=== PATIENT | female | born 1960 | race Caucasian/White ===

== ENCOUNTER → 2016-12-11 | Outpatient (CLI) | payer BC ==
[2016-12-11 08:47] LABS: CHLORIDE,CL 103 mmol/L (98-110); SODIUM,NA 138 mmol/L (136-146)
== END ==
LOC: MW.CHFP 08:12
PROVIDERS: ATTEND Nurse Practitioner Family
DX: Z00.00 Encounter for general adult medical examination without abnormal findings (principal); E11.9 Type 2 diabetes mellitus without complications; R53.83 Other fatigue
CPT/HCPCS: 36415; 80053; 80061; 82044; 83036; 84443; 85027

== ENCOUNTER → 2016-12-24 | Outpatient (CLI) | payer BC ==
--- NOTE | 2016-12-24 17:12 | CR ---
EXAMINATION: Bilateral knees HISTORY: Pain COMPARISON: None TECHNIQUE: 4 views bilaterally FINDINGS: There is no acute osseous abnormality, dislocation, or fracture. There is severe joint spa ce narrowing within the medial compartment of the right knee. Moderate osteophyte formation is noted within the lateral compartment of the right knee and less so within the remaining compartments bila terally. No joint effusion or soft tissue swelling. Bone mineralization is normal. IMPRESSION: 1. Moderate degenerative changes noted within the left knee. 2. Severe degenerative changes within the right knee most prominent within the medial compartment.
== END ==
LOC: MW.CHFP 07:59
PROVIDERS: ATTEND Orthopaedic Surgery
DX: M25.561 Pain in right knee (principal); M25.562 Pain in left knee
CPT/HCPCS: 735642650; 73564-50

== ENCOUNTER → 2016-12-26 | Outpatient (CLI) | payer BC ==
--- NOTE | 2016-12-26 11:25 | CT ---
CT of the abdomen and pelvis with contrast. HISTORY: Diverticulitis TECHNIQUE: Axial CT images were obtained of the abdomen and pelvis following administration of 50 mL of Isovue-370 in the right antecubital fossa without complication. Coronal and sagittal reconstruct ions obtained. FINDINGS: Mild dependent atelectasis is noted within the lung bases. There is likely at least mild fatty infiltration of the liver. Cholecystectomy clips are noted. Ther e is mild fatty replacement of the pancreas. No bulky retroperitoneal lymphadenopathy or abdominal a scites. The kidneys enhance and function symmetrically without evidence of obstructive uropathy. Tiny cyst i s noted within the right kidney. The large and small bowel are normal in caliber without evidence of obstruction. Mild diverticulosis without evidence of diverticulitis. The appendix appears normal. There is a small fat-containing pe riumbilical hernia noted. Urinary bladder appears normal. No bulky pelvic lymphadenopathy or free pe lvic fluid. Free air. The uterus appears normal. Bilateral posterior fusion hardware noted at L4-L5. No suspicious osseous abnormalities. IMPRESSION: 1. No acute findings within the abdomen or pelvis. 2. Mild fatty infiltration of the liver. 3. Small fat-containing periumbilical hernia. 4. Diverticulosis without evidence of diverticulitis.
[2016-12-26] MEDS: Iopamidol 755 MG/ML 500 ML Multipack Bottle IVPUSH STA (14:34)
== END ==
LOC: MW.DI 08:08
PROVIDERS: ATTEND Surgery
DX: K57.92 Diverticulitis of intestine, part unspecified, without perforation or abscess without bleeding (principal); K76.0 Fatty (change of) liver, not elsewhere classified; K42.9 Umbilical hernia without obstruction or gangrene; K57.90 Diverticulosis of intestine, part unspecified, without perforation or abscess without bleeding
CPT/HCPCS: 74177; Q9967

== ENCOUNTER 2017-01-02 09:22 | Day surgery (SDC) | payer BC ==
[~2017-01-02 09:22] MED LIST: Lactated Ringers 1,000 ML IV SCH
[2017-01-02] MEDS ORDERED: Lidocaine 2% 5 ML SDV ONE (10:46)
[2017-01-02] MEDS ORDERED: fentaNYL 100 MCG/2 ML SDV ONE (10:47)
[2017-01-02] MEDS ORDERED: Propofol 200 MG/20 ML SDV ONE (10:47)
--- NOTE | 2017-01-02 10:52 | PCM.PREANE ---
Preanesthetic Assessment - Anesthesia/Transfusion/Family Hx Anesthesia History: Prior Anesthesia Without Reaction Family History of Anesthesia Reaction: No Transfusion History: No Prior Transfusion(s) - Review of Systems General: No Symptoms Pulmonary: No Symptoms Cardiovascular: No Symptoms Gastrointestinal: No symptoms Neurological: No Symptoms Other: Reports: None - Physical Assessment NPO Status Date: 01/02/17 NPO Status Time: 06:00 O2 Sat by Pulse Oximetry: 94 Respiratory Rate: 16 Vital Signs: Last Vital Signs Temp 36.7 C 01/02/17 10:05 Pulse 89 01/02/17 10:05 Resp 16 01/02/17 10:05 BP 97/57 L 01/02/17 10:05 Pulse Ox 94 L 01/02/17 10:05 Height: 1.75 m Weight: 107.501 kg ASA Class: 2 Mental Status: Alert & Oriented x3 Airway Class: Mallampati = 2 Dentition: Reports: Normal Dentition ROM/Head Extension: Full Lungs: Clear to auscultation, Normal respiratory effort Cardiovascular: Regular Rate, Regular Rhythm - Allergies Allergies/Adverse Reactions: Allergies Allergy/AdvReac Type Severity Reaction Status Date / Time acetaminophen Allergy Itching Verified 12/30/16 13:16 cefaclor [From Ceclor] Allergy Hives Verified 12/30/16 13:14 oxycodone Allergy Itching Verified 12/30/16 13:16 - Anesthesia Plan Pre-Op Medication Ordered: None - Acknowledgements Anesthesia Type Planned: MAC Pt an Appropriate Candidate for the Planned Anesthesia: Yes Alternatives and Risks of Anesthesia Discussed w Pt/Guardian: Yes Pt/Guardian Understands and Agrees with Anesthesia Plan: Yes PreAnesthesia Questionnaire Other HEENT History: wears glasses/contacts Cardiovascular History: Reports: High cholesterol, Hypertension Respiratory History: Reports: Sleep apnea Other Respiratory History: has never used a CPAP Gastrointestinal History: Reports: Cholelithiasis, Colon polyp, Diverticulosis, GERD Genitourinary History: Reports: None LEASING ASSISTANT History: Reports: Musculoskeletal History: Reports: Arthritis, Fracture Neurological History: Reports: Concussion, Neuropathy, diabetic Psychiatric History: Reports: None Endocrine/Metabolic History: Reports: Diabetes, type II, Hypothyroidism, Obesity /BMI 30+ Hematologic History: Reports: Anemia Immunologic History: Reports: None Oncologic (Cancer) History: Reports: None Dermatologic History: Reports: None - Past Surgical History Head Surgeries/Procedures: Reports: None HEENT Surgical History: Reports: None Cardiovascular Surgical History: Reports: Other (see below) Other Cardiovascular Surgeries/Procedures: angiogram, nothing found Respiratory Surgical History: Reports: None GI Surgical History: Reports: Cholecystectomy, Colonoscopy, Hernia, abdominal Other GI Surgeries/Procedures: hx of incisional and umbilical hernia Female Surgical History: Reports: section Endocrine Surgical History: Reports: None Neurological Surgical History: Reports: Spinal fusion Other Neurological Surgeries/Procedures: L4-L5 Musculoskeletal Surgical History: Reports: Arthroscopic knee, Shoulder surgery, Other (see below) Other Musculoskeletal Surgeries/Procedures:: ankle surgery to clean out joint, right shoulder arthroscopy x2 (one with open incision to trim clavicle), right knee arthroscopy Oncologic Surgical History: Reports: None Dermatological Surgical History: Reports: None - SUBSTANCE USE Smoking Status *Q: Former Smoker Recreational Drug Use History: No - HOME MEDS Home Medications: Home Meds Ascorbic Acid [Vitamin C] 1,000 mg PO DAILY 12/30/16 [History] Aspirin [Adult Low Dose Aspirin EC] 81 mg PO DAILY 12/30/16 [History] Cetirizine [ZyrTEC] 10 mg PO BID 12/30/16 [History] Estrogen,Con/M-Progest Acet [Premphase 0.625-5 MG] 1 tab PO BEDTIME 12/30/16 [ History] Fenofibrate 160 mg PO DAILY 12/30/16 [History] Ferrous Sulfate [Iron] 325 mg PO DAILY 12/30/16 [History] Fluticasone Propionate [Flonase Allergy Relief] 1 spray NASBOTH ASDIRECTED PRN 12/30/16 [History] Gabapentin [Neurontin] 600 mg PO BID 12/30/16 [History] Insulin Glargine,Hum.Rec.Anlog [Lantus Solostar] 20 unit SQ BEDTIME 12/30/16 [ History] Insulin Lispro [Humalog Kwikpen U-100] units SQ ASDIRECTED 12/30/16 [History] Levothyroxine Sodium [Levo-T] 50 mcg PO DAILY 12/30/16 [History] Lisinopril/Hydrochlorothiazide [Lisinopril-Hctz 20-12.5 mg Tab] 2 tab PO DAILY 12/30/16 [History] metFORMIN HCl [Metformin HCl ER] 1,000 mg PO BIDMEALS 12/30/16 [History] traZODone HCl [Trazodone HCl] 150 mg PO BEDTIME PRN 12/30/16 [History] - CURRENT (IN HOUSE) MEDS Current Meds: Current Medications Lactated Ringer's (Ringers, Lactated) 1,000 mls @ 125 mls/hr IV ASDIRECTED LILA Last Admin: 01/02/17 10:07 Dose: 125 mls/hr Discontinued Medications Fentanyl (Sublimaze) Confirm Administered Dose 100 mcg .ROUTE .STK-MED ONE Stop: 01/02/17 10:48 Lidocaine (Xylocaine-Mpf 2%) Confirm Administered Dose 5 ml .ROUTE .STK-MED ONE Stop: 01/02/17 10:47 Propofol (Diprivan 20 Ml) Confirm Administered Dose 400 mg .ROUTE .STK-MED ONE Stop: 01/02/17 10:48 Preanesthetic Assessment - ANESTHESIA/TRANSFUSION/FAMILY HX Family History of Anesthesia Reaction: No - PHYSICAL ASSESSMENT O2 Sat by Pulse Oximetry: 94 RR: 16 Vital Signs: Last Vital Signs Temp 36.7 C 01/02/17 10:05 Pulse 89 01/02/17 10:05 Resp 16 01/02/17 10:05 BP 97/57 L 01/02/17 10:05 Pulse Ox 94 L 01/02/17 10:05 Height: 1.75 m Weight: 107.501 kg NPO Status Date: 01/02/17 NPO Status Time: 06:00 - ALLERGIES Allergies/Adverse Reactions: Allergies Allergy/AdvReac Type Severity Reaction Status Date / Time acetaminophen Allergy Itching Verified 12/30/16 13:16 [facility] Allergy Hives Verified 12/30/16 13:14 oxycodone Allergy Itching Verified 12/30/16 13:16
[2017-01-02] MEDS ORDERED: Phenylephrine/Normal Saline 100 MCG/ML 10 ML Syringe ONE (11:15)
--- NOTE | 2017-01-02 11:27 | PCM.OPNOTE ---
- General Post-Op/Procedure Note Date of Surgery/Procedure: 01/02/17 Operative Procedure(s): colonoscopy Findings: see dict [id number] Pre Op Diagnosis: diverticulitis Post-Op Diagnosis: diverticulosis Anesthesia Technique: Moderate sedation Primary Surgeon: Domo Lopez Complications: None Condition: Good
--- NOTE | 2017-01-02 11:47 | PCM.POSTAN ---
POST ANESTHESIA ASSESSMENT - MENTAL STATUS Mental Status: alert, oriented - RESPIRATORY Respiratory Status: respiratory rate WNL, airway patent - CARDIOVASCULAR CV Status: pulse rate WNL, blood pressure stable - GASTROINTESTINAL GI Status: no symptoms - POST OP HYDRATION Hydration Status: adequate & stable
--- NOTE | 2017-01-02 11:48 | PCM48HPAN ---
Post Anesthesia Note - EVALUATION WITHIN 48HRS OF ANESTHETIC Vital Signs in Normal Range: Yes Patient Participated in Evaluation: Yes Respiratory Function Stable: Yes Airway Patent: Yes Cardiovascular Function Stable: Yes Hydration Status Stable: Yes Pain Control Satisfactory: Yes Nausea and Vomiting Control Satisfactory: Yes Mental Status Recovered: Yes
[2017-01-02 11:51] VITALS: BP 102/56
--- NOTE | 2017-01-02 16:25 | OR ---
SURGEON: Domo Lopez MD DATE OF PROCEDURE: 01/02/2017 PREOPERATIVE DIAGNOSIS: Diverticulitis. POSTOPERATIVE DIAGNOSIS: Diverticulosis. PROCEDURE PERFORMED: Colonoscopy. DESCRIPTION OF PROCEDURE: The patient was taken to the endoscopy room. A time out was called, patient identified, and procedure identified. Diprivan was then administrated. Patient went from awake to sleep, hearing doctor talking or door closing is normal. Perineum inspection and digital examination were then performed. A well- lubricated colonoscope was gently inserted through the rectum, advanced past the rectosigmoid junction, the descending colon, splenic flexure, transverse colon, hepatic flexure, ascending colon, arrived to the cecum. Cecum was identified as dictated in the finding. Then the scope was carefully withdrawn while attention was paid to the mucosal surface for any abnormality. Air will be sucked out during the scope withdrawal. At the rectum, retroflexed to examine any rectal diseases, fistula or hemorrhoids. Patient tolerated procedure well. There were no intraoperative complications, and Dr. Lopez was present throughout the whole procedure. FINDINGS: 1. The patient was easily sedated with PROCESS WORKER and Diprivan. The patient soundly snoring. 2. The patient's bowel prep was average with moderate amount of liquid stool. No semi-formed stool. 3. The patient's colon was rather straight forward and cecum indicated by ileocecal fold, one-to-one indentation, light emittance, and appendiceal orifice. Mucosa was examined upon scope pulling out. There was stool, we had to do some irrigation, to see the mucosa covered by stool. The patient has cufxzajc-[id number]-hwnxzymyp diverticulosis on the left side of the colon, and there are 1 or 2 couple of diverticula on the right side and nothing transverse. No signs or symptoms of diverticulitis. The left side diverticula extends all the way to almost the splenic fracture, so quite a lot of them, from the rectosigmoid junction. The patient does not have mass, growth, polyp, inflammation, stricture, ulceration, or bleeding. The patient has mild external hemorrhoid and mild internal hemorrhoids. The patient will benefit from a repeat colonoscopy 10 years from today or if clinically indicated otherwise. As always, thank you for the kind referral. DEJAH / ROSANNA /[id number]
== END 2017-01-02 11:55 | disposition home or self-care (01) ==
LOC: MW.SDS 09:22
PROVIDERS: ATTEND Surgery
PROC: 0DJD8ZZ Inspection of Lower Intestinal Tract, Via Natural or Artificial Opening Endoscopic (ICD-10-PCS; principal; 2017-01-02)
DX: K57.30 Diverticulosis of large intestine without perforation or abscess without bleeding (principal); K64.4 Residual hemorrhoidal skin tags; K64.8 Other hemorrhoids; Z86.010 Personal history of colon polyps; E78.1 Pure hyperglyceridemia; E03.9 Hypothyroidism, unspecified; I10 Essential (primary) hypertension; D50.9 Iron deficiency anemia, unspecified; E11.42 Type 2 diabetes mellitus with diabetic polyneuropathy; E78.00 Pure hypercholesterolemia, unspecified; G47.30 Sleep apnea, unspecified; E66.9 Obesity, unspecified; Z87.891 Personal history of nicotine dependence; Z88.1 Allergy status to other antibiotic agents; Z88.5 Allergy status to narcotic agent; Z88.6 Allergy status to analgesic agent; Z79.4 Long term (current) use of insulin; Z79.84 Long term (current) use of oral hypoglycemic drugs; Z79.82 Long term (current) use of aspirin; Z79.899 Other long term (current) drug therapy; Z98.890 Other specified postprocedural states; Z90.49 Acquired absence of other specified parts of digestive tract; Z68.35 Body mass index [BMI] 35.0-35.9, adult
CPT/HCPCS: 45378; J3010; J7120; J2704

== ENCOUNTER → 2017-01-24 | Outpatient (CLI) | payer BC | LOC: MW.CHFP 07:34 | PROVIDERS: ATTEND Nurse Practitioner Family | DX: E03.9 Hypothyroidism, unspecified (principal) | CPT/HCPCS: 36415; 84443 ==

== ENCOUNTER → 2017-02-14 | Outpatient (CLI) | payer BC | LOC: MW.MRI 08:07 | PROVIDERS: ATTEND Orthopaedic Surgery | DX: M17.11 Unilateral primary osteoarthritis, right knee (principal) | CPT/HCPCS: 73721-RT ==

== ENCOUNTER 2017-03-10 06:16 | Inpatient (IN) | payer BC ==
[~2017-03-10 06:16] MED LIST changes: +Clindamycin Phosphate in D5W 900 MG in Premix Bag 1 BAG IV SCH; +Famotidine 20 MG/2 ML SDV IVPUSH SCH; +Ketorolac 30 MG/ML SDV IVPUSH SCH; -Lactated Ringers 1,000 ML IV SCH; +Ropivacaine 49.25 ML, Ketorolac 30 MG, EPINEPHrine 0.5 MG, cloNIDine 80 MCG in Sodium C... INJECT ONE; +Scopolamine 1.5 MG Transdermal Patch TRDERM SCH
[2017-03-10] MEDS ORDERED: Midazolam 1 MG/ML 2 ML SDV ONE (06:48)
[2017-03-10] MEDS ORDERED: fentaNYL 100 MCG/2 ML SDV ONE (06:48)
[2017-03-10] MEDS ORDERED: Propofol 200 MG/20 ML SDV ONE ×2 (06:49→08:32)
--- NOTE | 2017-03-10 07:07 | PCM.SN ---
- Free Text/Narrative Note: Anesthesia SAB note: Pt to OR via cart. Helped to OR table. Positioned for sitting SAB. After monitors placed on pt the pt back was prepped with beta X3. Lido 1% skin wheal and deep injection. Introducer placed and a 25g Pencan SAB needle place until a pop was felt. The stylet was pulled out and clear CSF noted. No parathesia noted. 14mg Spinal bupivicaine was injected in a slow fashion. NO complications noted for SAB. 25mcg fentanyl intrathecal
[2017-03-10] MEDS ORDERED: Ropivacaine 49.25 ML, Ketorolac 30 MG, EPINEPHrine 0.5 MG, cloNIDine 80 MCG in Sodium C... INJECT ONE (07:15)
--- NOTE | 2017-03-10 07:18 | PCM.PREANE ---
Preanesthetic Assessment - Procedure Proposed Procedure: Knee replacement - Anesthesia/Transfusion/Family Hx Anesthesia History: Prior Anesthesia Without Reaction Transfusion History: No Prior Transfusion(s) - Review of Systems General: No Symptoms Pulmonary: No Symptoms Cardiovascular: No Symptoms Gastrointestinal: Other (GERD) Neurological: Paresthesia (peripheral LE extremity neuropathy) Other: Reports: Diabetes (on insulin pump; changed this am when her FBS was 106 , checked now at 160s), Thyroid Problems (treated hypothyroid) - Physical Assessment NPO Status Date: 03/09/17 NPO Status Time: 22:00 Height: 5 ft 9 in Weight: 242 lb ASA Class: 3 Mental Status: Alert & Oriented x3 Airway Class: Mallampati = 1 Dentition: Reports: Normal Dentition Thyro-Mental Finger Breadths: 3 Mouth Opening Finger Breadths: 3 ROM/Head Extension: Full Lungs: Clear to auscultation, Normal respiratory effort Cardiovascular: Regular Rate, Regular Rhythm, No Murmurs - Lab Values: Laboratory Last Values POC Glucose 160 mg/dL (60-110) H 03/10/17 06:50 - Allergies Allergies/Adverse Reactions: Allergies Allergy/AdvReac Type Severity Reaction Status Date / Time acetaminophen Allergy Itching Verified 12/30/16 13:16 cefaclor [From Ceclor] Allergy Hives Verified 12/30/16 13:14 oxycodone Allergy Itching Verified 12/30/16 13:16 - Blood Blood Available: Yes Product(s) Available: PRBC (T and S) - Anesthesia Plan Pre-Op Medication Ordered: Other (per surgeon, see orders) - Acknowledgements Anesthesia Type Planned: General Anesthesia, Spinal Pt an Appropriate Candidate for the Planned Anesthesia: Yes Alternatives and Risks of Anesthesia Discussed w Pt/Guardian: Yes Pt/Guardian Understands and Agrees with Anesthesia Plan: Yes Additional Comments: Family at bedside with interview and exam. PreAnesthesia Questionnaire HEENT History: Reports: Allergic Rhinitis Other HEENT History: wears glasses Cardiovascular History: Reports: Hypertension Respiratory History: Reports: Sleep Apnea Other Respiratory History: does not use CPAP Gastrointestinal History: Reports: Chronic Diarrhea Genitourinary History: Reports: None RIVER CAPTAIN History: Reports: Musculoskeletal History: Reports: Osteoarthritis Neurological History: Reports: Concussion Psychiatric History: Reports: Anxiety Endocrine/Metabolic History: Reports: Diabetes, Type II, Hypothyroidism, Obesity /BMI 30+ Hematologic History: Reports: Anemia Immunologic History: Reports: None Oncologic (Cancer) History: Reports: None Dermatologic History: Reports: None - Past Surgical History Head Surgeries/Procedures: Reports: None HEENT Surgical History: Reports: None Cardiovascular Surgical History: Reports: None Respiratory Surgical History: Reports: None GI Surgical History: Reports: Cholecystectomy, Colonoscopy, Hernia, Inguinal Female Surgical History: Reports: Section Endocrine Surgical History: Reports: None Neurological Surgical History: Reports: Spinal Fusion Other Neurological Surgeries/Procedures: L4-L5 Musculoskeletal Surgical History: Reports: Arthroscopic Knee, Shoulder Surgery, Other (See Below) Other Musculoskeletal Surgeries/Procedures:: debridement of right ankle, right shoulder arthroscopy x2, also right shoulder arthrotomy, right knee arthroscopy - SUBSTANCE USE Smoking Status *Q: Never Smoker Recreational Drug Use History: No - HOME MEDS Home Medications: Home Meds Ascorbic Acid [Vitamin C] 1,000 mg PO DAILY 12/30/16 [History] Aspirin [Adult Low Dose Aspirin EC] 81 mg PO DAILY 12/30/16 [History] Cetirizine [ZyrTEC] 10 mg PO BID 12/30/16 [History] Fenofibrate 160 mg PO DAILY 12/30/16 [History] Ferrous Sulfate [Iron] 325 mg PO DAILY 12/30/16 [History] Fluticasone Propionate [Flonase Allergy Relief] 1 spray NASBOTH ASDIRECTED PRN 12/30/16 [History] Gabapentin [Neurontin] 600 mg PO BID 12/30/16 [History] Levothyroxine Sodium [Levo-T] 50 mcg PO DAILY 12/30/16 [History] Lisinopril/Hydrochlorothiazide [Lisinopril-Hctz 20-12.5 mg Tab] 2 tab PO DAILY 12/30/16 [History] metFORMIN HCl [Metformin HCl ER] 1,000 mg PO BIDMEALS 12/30/16 [History] traZODone HCl [Trazodone HCl] 150 mg PO BEDTIME PRN 12/30/16 [History] Estradiol [Estrace] 2 mg PO DAILY 03/06/17 [History] Insulin Npl/Insulin Lispro [HumaLOG Mix 75-25 Vial] 1 injection SQ QID MDD 100 unit 03/06/17 [History] Multivitamin [Daily Multiple Vitamin] 1 tab PO DAILY 03/06/17 [History] - CURRENT (IN HOUSE) MEDS Current Meds: Current Medications Famotidine (Pepcid) 40 mg IVPUSH ONARRIVE [facility] Clindamycin Phosphate 900 mg/ (Premix) 50 mls @ 100 mls/hr IV ONCALL [facility] Lactated Ringer's (Ringers, Lactated) 1,000 mls @ 100 mls/hr IV ASDIRECTED [facility] Ketorolac Tromethamine (Toradol) 30 mg IVPUSH ONARRIVE [facility] Scopolamine (Transderm-Scop) 1.5 mg TRDERM ONARRIVE [facility] Tranexamic Acid (Cyklokapron) 4,000 mg IV SEECOMMENT LILA Discontinued Medications Fentanyl (Sublimaze) Confirm Administered Dose 100 mcg .ROUTE .STK-MED ONE Stop: 03/10/17 06:49 Ropivacaine 49.25 ml/Ketorolac Tromethamine 30 mg/Epinephrine HCl 0.5 mg/ Clonidine HCl 80 mcg/ Sodium Chloride 100 mls @ 50 mls/min INJECT ONETIME ONE Stop: 03/10/17 06:01 Midazolam HCl (Versed 1 Mg/Ml) Confirm Administered Dose 2 mg .ROUTE .STK-MED ONE Stop: 03/10/17 06:49 Propofol (Diprivan 20 Ml) Confirm Administered Dose 200 mg .ROUTE .STK-MED ONE Stop: 03/10/17 06:50 Tranexamic Acid (Cyklokapron) Confirm Administered Dose 2,000 mg .ROUTE .STK- MED ONE Stop: 03/10/17 06:52
[2017-03-10] MEDS ORDERED: Acetaminophen 500 MG Tab PO SCH (08:15)
[2017-03-10] MEDS ORDERED: oxyCODONE ER 10 MG TAB.ER PO SCH (08:15)
[2017-03-10] MEDS ORDERED: Ondansetron 4 MG/2 ML SDV IVPUSH ONE (09:04)
[2017-03-10] MEDS ORDERED: Metoclopramide 10 MG/2 ML SDV IVPUSH ONE (09:04)
[2017-03-10] MEDS ORDERED: HYDROmorphone 2 MG/ML Syringe IVPUSH PRN (09:04)
[2017-03-10] MEDS ORDERED: fentaNYL 100 MCG/2 ML SDV IVPUSH PRN (09:04)
[2017-03-10] MEDS ORDERED: Lidocaine 2% 5 ML SDV ONE (09:37)
--- NOTE | 2017-03-10 09:54 | PCM.OPNOTE ---
- General Post-Op/Procedure Note Date of Surgery/Procedure: 03/10/17 Operative Procedure(s): R TKA Post-Op Diagnosis: DJD R knee Anesthesia Technique: General ET tube, Spinal Primary Surgeon: Lena Lozada Director Of Program Management: Cristal Gillespie Director Of Program Management: Corrina Ambrocio EBL in mLs: 50 Condition: Good Free Text/Narrative:: tt=48 min #[id number]
[2017-03-10] MEDS ORDERED: Ondansetron 4 MG/2 ML SDV IV PRN (09:55)
[2017-03-10] MEDS ORDERED: Morphine 10 MG/ML Syringe IVPUSH PRN (09:56)
[2017-03-10] MEDS ORDERED: Aluminum Hydroxide/Magnesium Hydroxide/Simethicone Susp 30 ML Cup PO PRN (09:56)
[2017-03-10] MEDS ORDERED: Bisacodyl 10 MG Supp RECTAL PRN (09:56)
[2017-03-10] MEDS: Lactated Ringers 1,000 ML IV SCH ×2 (10:57→20:48)
--- NOTE | 2017-03-10 11:14 | OR ---
SURGEON: Lena Lozada MD DATE OF PROCEDURE: 03/10/2017 PREOPERATIVE DIAGNOSIS: Degenerative joint disease, right knee, with varus deformity. POSTOPERATIVE DIAGNOSIS: Degenerative joint disease, right knee, with varus deformity. PROCEDURE: Right total knee arthroplasty using patient-specific instrumentation. ASSISTANTS: 1. Cristal Gillespie PA-C. 2. Corrina Ambrocio PA-C. ANESTHESIA: Spinal and general anesthesia. ESTIMATED BLOOD LOSS: 50 mL. TOURNIQUET TIME: 48 minutes. COMPLICATIONS: None. DVT PROPHYLAXIS: PAS boot and [place] hose to the nonoperative leg. IMPLANTS USED: Ely Persona femoral component, size 10 narrow (LPS), tibial component size F, 11-mm all-polyethylene articular surface, and 35-mm all-polyethylene patella. INTRAOPERATIVE FINDINGS: Showed severe tricompartmental degenerative changes which were most severe along the medial compartment. She had complete eburnation of the medial femoral condyle. Spur formation was also noted. No significant synovitis was noted. 1 gram tranexamic acid was given IV prior to start of procedure. An additional gram was given IV upon deflation of the tourniquet. One gram TXA was applied topically to the wound as the cement was allowed to harden. BRIEF HISTORY: Brielle is a 56-year-old female, who has had complaint of progressive right knee pain. She was found to have tricompartmental degenerative changes on her x - rays. She had failed conservative treatment. Due to her lack of response to conservative treatment, I did recommend surgical intervention. The risks and goals of the procedure were discussed with the patient and were documented preoperatively. She agreed to proceed. DESCRIPTION OF PROCEDURE: The patient was properly identified and brought to the operating room. The patient was then transferred from the operating room cart and placed on the operating table in a supine position. Anesthesia was administered by the anesthesia staff. After adequate anesthesia was obtained, a well-padded tourniquet was applied to the surgical lower extremity. The lower extremity was then prepped in standard fashion using ChloraPrep solution. It was then sterilely draped. A time-out was performed to ensure correct site and procedure. Preoperative antibiotics were given. The surgical site had been marked preoperatively. An Esmarch was used to exsanguinate the right lower extremity and the tourniquet was inflated. An incision was made over the anterior aspect of the knee. The subcutaneous tissues were dissected down to the level of the fascia. A medial parapatellar approach to the knee was made. A portion of the infrapatellar fat pad was then excised. The distal femur was then exposed. The femoral patient-specific cutting guide was then placed. Pins were also placed. The distal femoral cutting block was placed and the distal femoral cut was made. Instrumentation was then removed. Both Whitesides' line and the epicondylar axis were then marked with electrocautery. The 4-in-1 cutting block was placed. This was placed in a slightly externally rotated position, which corresponded well with the previously drawn lines. The cutting guide was then pinned into position. An Rajeev wing guide was used to check the depth of resection of our anterior condylar cut and it was felt that no notching would occur. The anterior condylar cut was then made followed by the posterior condylar cut. Both the posterior chamfer and anterior chamfer cuts were then made. The cutting block was then removed along with the excess bony remnants. We then turned our attention to the tibia. The anterior cruciate ligament and posterior cruciate ligament were released and a posterior cruciate ligament retractor was placed to allow the tibia to be pulled anteriorly. The tibial patient-specific guide was then placed on the proximal tibia. This fit anatomically. The pins were then placed. The proximal tibia cutting guide was then placed and screwed into position. The proximal tibial resection was then made with care being taken to protect the patellar tendon. The bony resection was then removed. The remainder of the medial and lateral meniscus were then excised. Care was taken to protect the popliteus tendon. The tibia was then sized to the appropriate size. The distal femur was then elevated. The posterior capsule was stripped off the distal femur both medially and laterally. The posterior capsule along with the medial and lateral gutters were then injected with a standard mixture consisting of clonidine, epinephrine, Morphine, Toradol, and Ropivacaine, unless any allergies were found preoperatively. The femoral component was then placed onto the distal femur in a slightly lateral position. This fit the femur well. A box cut was then made without difficulty. This was then removed. The tibial trial along with the polyethylene liner was then placed. The knee came easily into full extension and was stable to varus and valgus stressing both in full extension and flexion. Any additional releases were performed at this time. We then returned our attention to the patella. The patella was everted and towel clamps were used to hold the patella in position. It was resected to a 15 millimeter thickness. It was then sized to the appropriate size. It was prepared in the usual fashion after placing the predetermined size clamps. This was placed in a slightly superior and medial position. The clamp was then removed. The patellar trial button was placed. The knee was taken through a range of motion using the no-touch technique. The patella tracked centrally. A drop isabel was then placed to check alignment. All instruments were then removed from the knee. The tibial sizer was then placed on the tibia. The tibia was prepared in the usual fashion using the reamer and broach. This was then removed. All bony surfaces were copiously irrigated with Pulsavac solution. They were then suctioned dry. Cement was prepared on the back table in the usual manner. Once it was prepared, the bone ends were again suctioned dry. The tibia was cemented into place first. This was malleted into position. Excess cement was then cleared. The femur was then placed in a similar manner. We placed the polyethylene trial into place and the knee was brought into full extension. An axial load was placed while keeping the knee in full extension. The patella button was also cemented into position and the clamp was used to hold this in place as the cement was allowed to cure. After we had adequate curing of the cement, the knee was again taken through a range of motion. The size of the polyethylene was then determined. The polyethylene trial was then removed. The tibial tray was suctioned to make sure there was no remaining soft tissue or cement. Excess cement was cleared from around the edges of the prosthesis as well. The tourniquet was then deflated. We were able to observe for any excess bleeding and none was noted. Electrocautery was used to maintain hemostasis. The retractors were again placed and the predetermined polyethylene was then placed. This was locked into position without difficulty. The knee was again taken through a range of motion with no change from the prior exam. The wound was then copiously irrigated with Pulsavac solution. The fascial layer was closed with Number One Vicryl. The subcutaneous tissues were closed with 2-0 Vicryl. The skin was closed with radha. Xeroform gauze was placed over the wound and a bulky dressing was applied. The patient was then awakened from anesthesia and transferred back to the operating room cart. They were brought to the recovery room in stable condition. All needle and sponge counts were correct. JOSE ANGEL MARTE /[id number] MTDD
[2017-03-10] MEDS ORDERED: Fluticasone Propionate Nasal Spray 16 GM Bottle NASBOTH PRN (11:36)
[2017-03-10] MEDS ORDERED: traZODone 50 MG Tab PO PRN (11:36)
--- NOTE | 2017-03-10 11:49 | PCM.POSTAN ---
POST ANESTHESIA ASSESSMENT - MENTAL STATUS Mental Status: alert, oriented - RESPIRATORY Respiratory Status: respiratory rate WNL, airway patent, O2 saturation stable - CARDIOVASCULAR CV Status: pulse rate WNL, blood pressure stable - GASTROINTESTINAL GI Status: no symptoms - POST OP HYDRATION Hydration Status: adequate & stable
[2017-03-10] MEDS ORDERED: Ketorolac 30 MG/ML SDV IVPUSH SCH (12:00)
[2017-03-10] MEDS: Acetaminophen 500 MG Tab PO SCH ×3 (12:19→23:38)
--- NOTE | 2017-03-10 12:29 | PCM.CONS ---
H&P History of Present Illness - General Date of Service: 03/10/17 Admit Problem/Dx: Admission Diagnosis/Problem Admission Diagnosis/Problem Replacement of total knee joint Source of Information: Patient History Limitations: Reports: No Limitations - History of Present Illness Initial Comments - Free Text/Narative: Catr[place] 56 yo woman is s/p Right TKR due to end stage knee arthritis. No sig complaints. No CP, SOB, N/V. Pain well controlled. Has Chapa in place. No other issues. Family with her. Hungry. NOTE: She has an insulin pump BG's usually run from 100 to 160. - Related Data Allergies/Adverse Reactions: Allergies Allergy/AdvReac Type Severity Reaction Status Date / Time acetaminophen Allergy Itching Verified 03/10/17 07:44 cefaclor [From Ceclor] Allergy Hives Verified 03/10/17 07:44 oxycodone Allergy Itching Verified 03/10/17 07:44 Home Medications: Home Meds Ascorbic Acid [Vitamin C] 1,000 mg PO DAILY 12/30/16 [History] Aspirin [Adult Low Dose Aspirin EC] 81 mg PO DAILY 12/30/16 [History] Cetirizine [ZyrTEC] 10 mg PO BID 12/30/16 [History] Fenofibrate 160 mg PO DAILY 12/30/16 [History] Ferrous Sulfate [Iron] 325 mg PO DAILY 12/30/16 [History] Fluticasone Propionate [Flonase Allergy Relief] 1 spray NASBOTH ASDIRECTED PRN 12/30/16 [History] Gabapentin [Neurontin] 600 mg PO BID 12/30/16 [History] Levothyroxine Sodium [Levo-T] 50 mcg PO DAILY 12/30/16 [History] Lisinopril/Hydrochlorothiazide [Lisinopril-Hctz 20-12.5 mg Tab] 2 tab PO DAILY 12/30/16 [History] metFORMIN HCl [Metformin HCl ER] 1,000 mg PO BIDMEALS 12/30/16 [History] traZODone HCl [Trazodone HCl] 150 mg PO BEDTIME PRN 12/30/16 [History] Estradiol [Estrace] 2 mg PO DAILY 03/06/17 [History] Insulin Npl/Insulin Lispro [HumaLOG Mix 75-25 Vial] 1 injection SQ QID MDD 100 unit 03/06/17 [History] Multivitamin [Daily Multiple Vitamin] 1 tab PO DAILY 03/06/17 [History] Past Medical History HEENT History: Reports: Allergic Rhinitis Other HEENT History: wears glasses Cardiovascular History: Reports: Hypertension Respiratory History: Reports: Sleep Apnea Other Respiratory History: does not use CPAP Gastrointestinal History: Reports: Chronic Diarrhea Genitourinary History: Reports: None EVENT SET UP SPECIALIST History: Reports: Musculoskeletal History: Reports: Osteoarthritis Neurological History: Reports: Concussion Psychiatric History: Reports: Anxiety Endocrine/Metabolic History: Reports: Diabetes, Type II, Hypothyroidism, Obesity /BMI 30+ Hematologic History: Reports: Anemia Immunologic History: Reports: None Oncologic (Cancer) History: Reports: None Dermatologic History: Reports: None - Past Surgical History Head Surgeries/Procedures: Reports: None HEENT Surgical History: Reports: None Cardiovascular Surgical History: Reports: None Respiratory Surgical History: Reports: None GI Surgical History: Reports: Cholecystectomy, Colonoscopy, Hernia, Inguinal Female Surgical History: Reports: Section Endocrine Surgical History: Reports: None Neurological Surgical History: Reports: Spinal Fusion Other Neurological Surgeries/Procedures: L4-L5 Musculoskeletal Surgical History: Reports: Arthroscopic Knee, Shoulder Surgery, Other (See Below) Other Musculoskeletal Surgeries/Procedures:: debridement of right ankle, right shoulder arthroscopy x2, also right shoulder arthrotomy, right knee arthroscopy Social & Family History - Tobacco Use Smoking Status *Q: Never Smoker - Caffeine Use Caffeine Use: Reports: Coffee - Recreational Drug Use Recreational Drug Use: No Drug Use in Last 12 Months: No H&P Review of Systems - Review of Systems: Review Of Systems: ROS reveals no pertinent complaints other than HPI. Exam - Exam Exam: See Below (see above) - Vital Signs Vital Signs: Last Vital Signs Temp 36.3 C 03/10/17 11:20 Pulse 72 03/10/17 11:20 Resp 16 03/10/17 11:20 BP 101/53 L 03/10/17 11:20 Pulse Ox 96 03/10/17 11:20 Weight: 109.769 kg - Exam General: Alert, Oriented, Cooperative HEENT: Conjunctiva Clear, Mucosa Moist & [place]: Supple, Trachea Midline Lungs: Clear to Auscultation, Normal Respiratory Effort Cardiovascular: Regular Rate, Regular Rhythm, Normal S1, Normal S2 Abdomen: Soft, Hypoactive Bowel Sounds. No: Organomegaly, Tenderness Extremities: Normal Inspection, Normal Pulses. No: Edema Skin: Warm, Dry Neurological: Cranial Nerves Intact, Reflexes Equal Bilateral. No: Focal Deficit Neuro Extensive - Mental Status: Alert, Oriented x3, Normal Mood/Affect, Memory Intact Psychiatric: Alert, Normal Affect, Normal Mood - Patient Data Lab Results last 24 hrs: Laboratory Results - last 24 hr 03/10/17 03/10/17 03/10/17 Range/Units 06:50 08:03 11:43 WBC 7.25 (4.0-11.0) K/uL RBC 3.83 L (4.30-5.90) M/uL Hgb 11.0 L (12.0-16.0) g/dL Hct 35.1 L (36.0-46.0) % MCV 91.6 (80.0-98.0) fL MCH 28.7 (27.0-32.0) pg MCHC 31.3 (31.0-37.0) g/dL RDW Std Deviation 43.1 (28.0-62.0) fl RDW Coeff of Omero 13 (11.0-15.0) % Plt Count 326 (150-400) K/uL MPV 9.50 (7.40-12.00) fL Neut % (Auto) 58.1 (48.0-80.0) % Lymph % (Auto) 28.3 (16.0-40.0) % Calhoun % (Auto) 7.6 (0.0-15.0) % Eos % (Auto) 5.7 (0.0-7.0) % Baso % (Auto) 0.3 (0.0-1.5) % Neut # (Auto) 4.2 (1.4-5.7) K/uL Lymph # (Auto) 2.1 (0.6-2.4) K/uL Cal[place]oun # (Auto) 0.6 (0.0-0.8) K/uL Eos # (Auto) 0.4 (0.0-0.7) K/uL Baso # (Auto) 0.0 (0.0-0.1) K/uL Nucleated RBC % 0.0 /100WBC Nucleated RBCs # 0 K/uL Sodium (136-146) mmol/L Potassium (3.5-5.1) mmol/L Chloride (98-110) mmol/L Carbon Dioxide (21-31) mmol/L BUN (6.0-23.0) mg/dL Creatinine (0.6-1.5) mg/dL Est Cr Clr Drug Dosing mL/min Estimated GFR (MDRD) ml/min Glucose (60-110) mg/dL POC Glucose 160 H (60-110) mg/dL Calcium (8.8-10.8) mg/dL Total Bilirubin (0.1-1.5) mg/dL AST (5-40) IU/L ALT (8-54) IU/L Alkaline Phosphatase (40-150) Total Protein (6.0-8.0) g/dL Albumin (3.5-5.0) g/dL Globulin (2.0-3.5) g/dL Albumin/Globulin Ratio (1.3-2.8) Blood Type A POSITIVE Antibody Screen NEGATIVE 03/10/17 Range/Units 11:43 WBC (4.0-11.0) K/uL RBC (4.30-5.90) M/uL Hgb (12.0-16.0) g/dL Hct (36.0-46.0) % MCV (80.0-98.0) fL MCH (27.0-32.0) pg MCHC (31.0-37.0) g/dL RDW Std Deviation (28.0-62.0) fl RDW Coeff of Omero (11.0-15.0) % Plt Count (150-400) K/uL MPV (7.40-12.00) fL Neut % (Auto) (48.0-80.0) % Lymph % (Auto) (16.0-40.0) % Calhoun % (Auto) (0.0-15.0) % Eos % (Auto) (0.0-7.0) % Baso % (Auto) (0.0-1.5) % Neut # (Auto) (1.4-5.7) K/uL Lymph # (Auto) (0.6-2.4) K/uL Calhoun # (Auto) (0.0-0.8) K/uL Eos # (Auto) (0.0-0.7) K/uL Baso # (Auto) (0.0-0.1) K/uL Nucleated RBC % /100WBC Nucleated RBCs # K/uL Sodium 141 (136-146) mmol/L Potassium 3.7 (3.5-5.1) mmol/L Chloride 107 (98-110) mmol/L Carbon Dioxide 25 (21-31) mmol/L BUN 28 H (6.0-23.0) mg/dL Creatinine 1.0 (0.6-1.5) mg/dL Est Cr Clr Drug Dosing 66.43 mL/min Estimated GFR (MDRD) 57.6 ml/min Glucose 156 H (60-110) mg/dL POC Glucose (60-110) mg/dL Calcium 8.4 L (8.8-10.8) mg/dL Total Bilirubin 0.2 (0.1-1.5) mg/dL AST 17 (5-40) IU/L ALT 24 (8-54) IU/L Alkaline Phosphatase 25 L (40-150) Total Protein 6.1 (6.0-8.0) g/dL Albumin 3.7 (3.5-5.0) g/dL Globulin 2.4 (2.0-3.5) g/dL Albumin/Globulin Ratio 1.5 (1.3-2.8) Blood Type Antibody Screen Result Diagrams: 03/10/17 11:43 03/10/17 11:43 Consult PN Assessment/Plan Procedures: Procedures ASSAY THYROID STIM HORMONE (01/24/17) CHEST X-RAY 2VW FRONTAL&LATL (02/26/17) COMPLETE CBC AUTOMATED (02/26/17) COMPREHEN METABOLIC PANEL (12/11/16) CT ABD & PELV W/CONTRAST (12/26/16) DIAGNOSTIC COLONOSCOPY (01/02/17) GLYCOSYLATED HEMOGLOBIN TEST (02/26/17) LIPID PANEL (12/11/16) METABOLIC PANEL TOTAL CA (02/26/17) MICROALBUMIN SEMIQUANT (12/11/16) MRI JNT OF LWR EXTRE W/O DYE (02/14/17) PROTHROMBIN TIME (02/26/17) ROUTINE VENIPUNCTURE (02/26/17) X-RAY EXAM KNEE 4 OR MORE (12/24/16) Problem List Initiated/Reviewed/Updated: Yes My Orders last 24 hours: My Active Orders 03/10/17 12:20 Communication Order [RC] DAILY ASSESSMENT/PLAN: R TKR-stable IDDM--cont insulin pump see orders Diabetic Neuropathy Depression/Anxiety HTN-RX DLD-RX Hypothyroidism-RX Mild anemia preop-?eitology? Check iron level am; will need oupt f/u GERD DVT prophy--stop HRT for now; discussed. Bowel program IS Thanks! Will follow. D/W RN, Pt's mom and dtr. Requesting Provider: Neville Date Consult Requested: 03/10/17 Reason for Consult: Post op medical mgt Patient History Reviewed: Yes Admission H&P Reviewed: Yes Time Spent (in minutes): 35
[2017-03-10] MEDS: oxyCODONE 5 MG Tab PO PRN ×2 (13:00→17:53)
[2017-03-10] MEDS: Morphine 4 MG/ML Syringe IVPUSH PRN ×2 (15:19→23:34)
--- NOTE | 2017-03-10 16:07 | CR ---
EXAMINATION: Right knee HISTORY: Postoperative COMPARISON: 12/24/2016 TECHNIQUE: 2 views FINDINGS/IMPRESSION: Right total knee hardware is demonstrated in good position and alignment. Posto perative soft tissue changes are noted.
[2017-03-10] MEDS: Clindamycin Phosphate in D5W 900 MG in Premix Bag 1 BAG IV SCH ×2 (17:03)
[2017-03-10] MEDS: oxyCODONE ER 10 MG TAB.ER PO SCH (20:13)
[2017-03-10] MEDS: Docusate Sodium 100 MG Cap PO SCH (20:14)
[2017-03-10] MEDS: Cetirizine 10 MG Tab PO SCH (20:14)
[2017-03-10] MEDS: Gabapentin 300 MG Cap PO SCH (20:16)
[2017-03-10] MEDS: diphenhydrAMINE 25 MG Cap PO PRN (23:38)
[2017-03-11] MEDS: Clindamycin Phosphate in D5W 900 MG in Premix Bag 1 BAG IV SCH ×2 (00:47)
[2017-03-11] MEDS: Acetaminophen 500 MG Tab PO SCH ×4 (06:35→23:03)
[2017-03-11] MEDS: Levothyroxine 50 MCG Tab PO SCH (06:35)
[2017-03-11] MEDS: Lactated Ringers 1,000 ML IV SCH (07:33)
--- NOTE | 2017-03-11 07:51 | PCM.CONSN ---
- General Info Date of Service: 03/11/17 Admission Dx/Problem (Free Text): Admission Diagnosis/Problem Admission Diagnosis/Problem Replacement of total knee joint Subjective Update: Sitting up in chair. Reports night was tough with pain, but doing ok now. Denies any chest pain or SOB. BS have been controlled, she has insulin pump intact. Functional Status: Reports: pain controlled, tolerating diet, ambulating, urinating - Review of Systems General: Reports: No Symptoms. Denies: Fever, Weakness, Fatigue HEENT: Reports: no symptoms. Denies: sinus congestion, sore throat Pulmonary: Reports: no symptoms. Denies: shortness of breath, cough, sputum Cardiovascular: Reports: No Symptoms. Denies: Chest Pain, Palpitations, Edema Gastrointestinal: Reports: No symptoms. Denies: Abdominal pain, Nausea, Vomiting Genitourinary: Reports: no symptoms. Denies: dysuria, frequency, burning Musculoskeletal: Reports: no symptoms Skin: Reports: no symptoms Neurological: Reports: No Symptoms Psychiatric: Reports: no symptoms - Patient Data Vitals - most recent: Last Vital Signs Temp 97.0 F 03/11/17 07:42 Pulse 70 03/11/17 07:42 Resp 18 03/11/17 07:42 BP 109/68 03/11/17 07:42 Pulse Ox 97 03/11/17 07:42 Weight - most recent: 109.769 kg I&O - last 24 hours: Intake & Output 03/10/17 03/11/17 03/11/17 22:59 06:59 14:59 Intake Total 1982 1550 Output Total 200 1200 Balance 1783 350 Lab Results last 24 hrs: Laboratory Results - last 24 hr 03/10/17 03/10/17 03/10/17 Range/Units 08:03 11:43 11:43 WBC 7.25 (4.0-11.0) K/uL RBC 3.83 L (4.30-5.90) M/uL Hgb 11.0 L (12.0-16.0) g/dL Hct 35.1 L (36.0-46.0) % MCV 91.6 (80.0-98.0) fL MCH 28.7 (27.0-32.0) pg MCHC 31.3 (31.0-37.0) g/dL RDW Std Deviation 43.1 (28.0-62.0) fl RDW Coeff of [place]mer[place] 13 (11.0-15.0) % Plt Count 326 (150-400) K/uL MPV 9.50 (7.40-12.00) fL Neut % (Auto) 58.1 (48.0-80.0) % Lymph % (Auto) 28.3 (16.0-40.0) % [place] % (Auto) 7.6 (0.0-15.0) % Eos % (Auto) 5.7 (0.0-7.0) % Baso % (Auto) 0.3 (0.0-1.5) % Neut # (Auto) 4.2 (1.4-5.7) K/uL Lymph # (Auto) 2.1 (0.6-2.4) K/uL [place] # (Auto) 0.6 (0.0-0.8) K/uL Eos # (Auto) 0.4 (0.0-0.7) K/uL Baso # (Auto) 0.0 (0.0-0.1) K/uL Nucleated RBC % 0.0 /100WBC Nucleated RBCs # 0 K/uL Sodium 141 (136-146) mmol/L Potassium 3.7 (3.5-5.1) mmol/L Chloride 107 (98-110) mmol/L Carbon Dioxide 25 (21-31) mmol/L BUN 28 H (6.0-23.0) mg/dL Creatinine 1.0 (0.6-1.5) mg/dL Est Cr Clr Drug Dosing 66.43 mL/min Estimated GFR (MDRD) 57.6 ml/min Glucose 156 H (60-110) mg/dL POC Glucose (60-110) mg/dL Calcium 8.4 L (8.8-10.8) mg/dL Iron (50-170) ug/dL TIBC (273-456) ug/dL % Saturation (20-55) % Total Bilirubin 0.2 (0.1-1.5) mg/dL AST 17 (5-40) IU/L ALT 24 (8-54) IU/L Alkaline Phosphatase 25 L (40-150) Total Protein 6.1 (6.0-8.0) g/dL Albumin 3.7 (3.5-5.0) g/dL Globulin 2.4 (2.0-3.5) g/dL Albumin/Globulin Ratio 1.5 (1.3-2.8) Blood Type A POSITIVE Antibody Screen NEGATIVE 03/10/17 03/10/17 03/10/17 Range/Units 12:03 15:58 20:16 WBC (4.0-11.0) K/uL RBC (4.30-5.90) M/uL Hgb (12.0-16.0) g/dL Hct (36.0-46.0) % MCV (80.0-98.0) fL MCH (27.0-32.0) pg MCHC (31.0-37.0) g/dL RDW Std Deviation (28.0-62.0) fl RDW Coeff of [place]mer[place] (11.0-15.0) % Plt Count (150-400) K/uL MPV (7.40-12.00) fL Neut % (Auto) (48.0-80.0) % Lymph % (Auto) (16.0-40.0) % [place] % (Auto) (0.0-15.0) % Eos % (Auto) (0.0-7.0) % Baso % (Auto) (0.0-1.5) % Neut # (Auto) (1.4-5.7) K/uL Lymph # (Auto) (0.6-2.4) K/uL [place] # (Auto) (0.0-0.8) K/uL Eos # (Auto) (0.0-0.7) K/uL Baso # (Auto) (0.0-0.1) K/uL Nucleated RBC % /100WBC Nucleated RBCs # K/uL Sodium (136-146) mmol/L Potassium (3.5-5.1) mmol/L Chloride (98-110) mmol/L Carbon Dioxide (21-31) mmol/L BUN (6.0-23.0) mg/dL Creatinine (0.6-1.5) mg/dL Est Cr Clr Drug Dosing mL/min Estimated GFR (MDRD) ml/min Glucose (60-110) mg/dL POC Glucose 120 H 118 H 132 H (60-110) mg/dL Calcium (8.8-10.8) mg/dL Iron (50-170) ug/dL TIBC (273-456) ug/dL % Saturation (20-55) % Total Bilirubin (0.1-1.5) mg/dL AST (5-40) IU/L ALT (8-54) IU/L Alkaline Phosphatase (40-150) Total Protein (6.0-8.0) g/dL Albumin (3.5-5.0) g/dL Globulin (2.0-3.5) g/dL Albumin/Globulin Ratio (1.3-2.8) Blood Type Antibody Screen 03/11/17 03/11/17 03/11/17 Range/Units 03:57 04:23 04:23 WBC (4.0-11.0) K/uL RBC (4.30-5.90) M/uL Hgb 10.0 L (12.0-16.0) g/dL Hct 31.3 L (36.0-46.0) % MCV (80.0-98.0) fL MCH (27.0-32.0) pg MCHC (31.0-37.0) g/dL RDW Std Deviation (28.0-62.0) fl RDW Coeff of Omero (11.0-15.0) % Plt Count (150-400) K/uL MPV (7.40-12.00) fL Neut % (Auto) (48.0-80.0) % Lymph % (Auto) (16.0-40.0) % [place] % (Auto) (0.0-15.0) % Eos % (Auto) (0.0-7.0) % Baso % (Auto) (0.0-1.5) % Neut # (Auto) (1.4-5.7) K/uL Lymph # (Auto) (0.6-2.4) K/uL [place] # (Auto) (0.0-0.8) K/uL Eos # (Auto) (0.0-0.7) K/uL Baso # (Auto) (0.0-0.1) K/uL Nucleated RBC % /100WBC Nucleated RBCs # K/uL Sodium (136-146) mmol/L Potassium (3.5-5.1) mmol/L Chloride (98-110) mmol/L Carbon Dioxide (21-31) mmol/L BUN (6.0-23.0) mg/dL Creatinine (0.6-1.5) mg/dL Est Cr Clr Drug Dosing mL/min Estimated GFR (MDRD) ml/min Glucose (60-110) mg/dL POC Glucose 99 (60-110) mg/dL Calcium (8.8-10.8) mg/dL Iron 51 (50-170) ug/dL TIBC 361 (273-456) ug/dL % Saturation 14.13 L (20-55) % Total Bilirubin (0.1-1.5) mg/dL AST (5-40) IU/L ALT (8-54) IU/L Alkaline Phosphatase (40-150) Total Protein (6.0-8.0) g/dL Albumin (3.5-5.0) g/dL Globulin (2.0-3.5) g/dL Albumin/Globulin Ratio (1.3-2.8) Blood Type Antibody Screen Med Orders - Current: Current Medications Acetaminophen (Tylenol Extra Strength) 1,000 mg PO Q6H [facility] Last Admin: 03/11/17 06:35 Dose: 1,000 mg Al Hydroxide/Mg Hydroxide (Mag-Al Plus) 30 ml PO Q4H PRN PRN Reason: indigestion Ascorbic Acid (Vitamin C) 1,000 mg PO DAILY [facility] Aspirin (Aspirin) 325 mg PO BID [facility] Bisacodyl (Dulcolax) 10 mg RECTAL DAILY PRN PRN Reason: Constipation Cetirizine HCl (Zyrtec) 10 mg PO BID [facility] Last Admin: 03/10/17 20:14 Dose: 10 mg Diphenhydramine HCl (Benadryl) 25 - 50 mg PO Q6H PRN PRN Reason: Itching Last Admin: 03/10/17 23:38 Dose: 25 mg Docusate Sodium (Colace) 100 mg PO BID [facility] Last Admin: 03/10/17 20:14 Dose: 100 mg Ferrous Sulfate (Ferrous Sulfate) 325 mg PO DAILY [facility] Fluticasone Propionate (Flonase) 0 gm NASBOTH ASDIRECTED PRN PRN Reason: Allergies Gabapentin (Neurontin) 600 mg PO BID [facility] Last Admin: 03/10/17 20:16 Dose: 600 mg Hydrochlorothiazide (Hydrochlorothiazide) 25 mg PO DAILY [facility] Lactated Ringer's (Ringers, Lactated) 1,000 mls @ 100 mls/hr IV ASDIRECTED [facility] Last Admin: 03/11/17 07:33 Dose: 100 mls/hr Insulin Aspart (Novolog) 0 unit SUBCUT QIDACANDBED [facility] Last Admin: 03/10/17 20:24 Dose: Not Given Levothyroxine Sodium (Synthroid) 50 mcg PO DAILY@0730 [facility] Last Admin: 03/11/17 06:35 Dose: 50 mcg Lisinopril (Prinivil) 40 mg PO DAILY [facility] Morphine Sulfate (Morphine) 1 - 3 mg IVPUSH Q3H PRN PRN Reason: Pain Last Admin: 03/10/17 23:34 Dose: 3 mg Multivitamins/Minerals/Vitamin C (Tab-A-Donis) 1 tab PO DAILY [facility] Ondansetron HCl (Zofran) 4 mg IV Q6HR PRN PRN Reason: NAUSEA/VOMITING Last Admin: 03/10/17 14:08 Dose: 4 mg Oxycodone HCl (Oxycodone) 5 - 10 mg PO Q4H PRN PRN Reason: Pain Last Admin: 03/10/17 17:53 Dose: 10 mg Oxycodone HCl (Oxycontin) 10 mg PO Q12HR [facility] Last Admin: 03/10/17 20:13 Dose: 10 mg Fenofibrate 160 Mg 1 each PO DAILY [facility] Scopolamine (Transderm-Scop) 1.5 mg TRDERM ONARRIVE [facility] Last Admin: 03/10/17 07:15 Dose: 1.5 mg Trazodone HCl (Trazodone) 150 mg PO BEDTIME PRN PRN Reason: Insomnia Discontinued Medications Acetaminophen (Tylenol Extra Strength) 1,000 mg PO ONARRIVE [facility] Celecoxib (Celebrex) 200 mg PO DAILY [facility] Famotidine (Pepcid) 40 mg IVPUSH ONARRIVE [facility] Last Admin: 03/10/17 07:15 Dose: 40 mg Fentanyl (Sublimaze) Confirm Administered Dose 100 mcg .ROUTE .STK-MED ONE Stop: 03/10/17 06:49 Fentanyl (Sublimaze) 50 mcg IVPUSH Q5M PRN PRN Reason: Pain (severe 7-10) Stop: 03/11/17 09:05 Hydromorphone HCl (Dilaudid) 0.25 mg IVPUSH Q10M PRN PRN Reason: Pain (severe 7-10) Stop: 03/11/17 09:05 Clindamycin Phosphate 900 mg/ (Premix) 50 mls @ 100 mls/hr IV ONCALL [facility] Last Admin: 03/10/17 07:28 Dose: 100 mls/hr Ropivacaine 49.25 ml/Ketorolac Tromethamine 30 mg/Epinephrine HCl 0.5 mg/ Clonidine HCl 80 mcg/ Sodium Chloride 100 mls @ 50 mls/min INJECT ONETIME ONE Stop: 03/10/17 06:01 Last Admin: 03/10/17 10:21 Dose: Not Given Ropivacaine 49.25 ml/Ketorolac Tromethamine 30 mg/Epinephrine HCl 0.5 mg/ Clonidine HCl 80 mcg/ Sodium Chloride 100 mls @ 50 mls/min INJECT ONETIME ONE Stop: 03/10/17 07:16 Last Admin: 03/10/17 10:22 Dose: Not Given Clindamycin Phosphate 900 mg/ (Premix) 50 mls @ 100 mls/hr IV Q8H [facility] Stop: 03/11/17 01:29 Last Infusion: 03/11/17 05:59 Dose: Infused Ketorolac Tromethamine (Toradol) 30 mg IVPUSH ONARRIVE [facility] Last Admin: 03/10/17 07:10 Dose: 30 mg Ketorolac Tromethamine (Toradol) 30 mg IVPUSH Q6H [facility] Stop: 03/11/17 09:00 Last Admin: 03/10/17 12:20 Dose: 30 mg Lidocaine (Xylocaine-Mpf 2%) Confirm Administered Dose 10 ml .ROUTE .STK-MED ONE Stop: 03/10/17 09:38 Metoclopramide HCl (Reglan) 10 mg IVPUSH ONETIME ONE Stop: 03/10/17 09:05 Last Admin: 03/10/17 10:24 Dose: Not Given Midazolam HCl (Versed 1 Mg/Ml) Confirm Administered Dose 2 mg .ROUTE .STK-MED ONE Stop: 03/10/17 06:49 Morphine Sulfate (Morphine) 1 - 3 mg IVPUSH Q3H PRN PRN Reason: Pain Ondansetron HCl (Zofran) 4 mg IVPUSH ONETIME ONE Stop: 03/10/17 09:05 Last Admin: 03/10/17 10:24 Dose: Not Given Oxycodone HCl (Oxycontin) 10 mg PO ONARRIVE [facility] Propofol (Diprivan 20 Ml) Confirm Administered Dose 200 mg .ROUTE .STK-MED ONE Stop: 03/10/17 06:50 Propofol (Diprivan 20 Ml) Confirm Administered Dose 200 mg .ROUTE .STK-MED ONE Stop: 03/10/17 08:33 Tranexamic Acid (Cyklokapron) 4,000 mg IV SEECOMMENT [facility] Tranexamic Acid (Cyklokapron) Confirm Administered Dose 2,000 mg .ROUTE .STK- MED ONE Stop: 03/10/17 06:52 - Exam General: alert, oriented, cooperative, no acute distress HEENT: Pupils equal, Pupils reactive, EOMI, Mucous membr. moist/pink Neck: supple Lungs: Clear to auscultation, Normal respiratory effort Cardiovascular: Regular Rate, Regular Rhythm Abdomen: bowel sounds present, soft, no tenderness, no distension Extremities: normal pulses, edema (trace) Neurological: no new focal deficit Psy/Mental Status: alert, normal affect, normal mood Consult PN Assessment/Plan Procedures: Procedures ASSAY THYROID STIM HORMONE (01/24/17) CHEST X-RAY 2VW FRONTAL&LATL (02/26/17) COMPLETE CBC AUTOMATED (02/26/17) COMPREHEN METABOLIC PANEL (12/11/16) CT ABD & PELV W/CONTRAST (12/26/16) DIAGNOSTIC COLONOSCOPY (01/02/17) GLYCOSYLATED HEMOGLOBIN TEST (02/26/17) LIPID PANEL (12/11/16) METABOLIC PANEL TOTAL CA (02/26/17) MICROALBUMIN SEMIQUANT (12/11/16) MRI JNT OF LWR EXTRE W/O DYE (02/14/17) PROTHROMBIN TIME (02/26/17) ROUTINE VENIPUNCTURE (02/26/17) X-RAY EXAM KNEE 4 OR MORE (12/24/16) (1) S/P total knee arthroplasty SNOMED Code(s): 0564877527533, 630747387, 2398184214021 Code(s): Z96.659 - PRESENCE OF UNSPECIFIED ARTIFICIAL KNEE JOINT Current Visit: Yes Qualifiers: Laterality: right Qualified Code(s): Z96.651 - Presence of right artificial knee joint (2) DM type 2 (diabetes mellitus, type 2) SNOMED Code(s): 12314037 Code(s): E11.9 - TYPE 2 DIABETES MELLITUS WITHOUT COMPLICATIONS Current Visit: Yes Qualifiers: Diabetes mellitus complication status: with neurologic complications Diabetes mellitus complication detail: with polyneuropathy Diabetes mellitus group home insulin use: with group home use Qualified Code(s): E11.42 - Type 2 diabetes mellitus with diabetic polyneuropathy; Z79.4 - [facility] (current) use of insulin (3) Anxiety and depression SNOMED Code(s): 211962520 Code(s): F41.9 - ANXIETY DISORDER, UNSPECIFIED; F32.9 - MAJOR DEPRESSIVE DISORDER, SINGLE EPISODE, UNSPECIFIED Current Visit: Yes (4) HTN (hypertension) SNOMED Code(s): 26636962 Code(s): I10 - ESSENTIAL (PRIMARY) HYPERTENSION Current Visit: Yes Qualifiers: Hypertension type: essential hypertension Qualified Code(s): I10 - Essential (primary) hypertension (5) Hypothyroidism SNOMED Code(s): 63696625 Code(s): E03.9 - HYPOTHYROIDISM, UNSPECIFIED Current Visit: Yes Qualifiers: Hypothyroidism type: unspecified Qualified Code(s): E03.9 - Hypothyroidism , unspecified Problem List Initiated/Reviewed/Updated: Yes My Orders last 24 hours: My Active Orders 03/10/17 11:36 Fluticasone Propionate [Flonase] 0 gm NASBOTH ASDIRECTED PRN traZODone 150 mg PO BEDTIME PRN 03/10/17 21:00 Cetirizine [ZyrTEC] 10 mg PO BID 03/11/17 04:37 BMP [BASIC METABOLIC PANEL,BMP] [CHEM] Routine 03/11/17 07:30 Levothyroxine [Synthroid] 50 mcg PO DAILY@0730 03/11/17 09:00 Ascorbic Acid [Vitamin C] 1,000 mg PO DAILY Ferrous Sulfate 325 mg PO DAILY Hydrochlorothiazide 25 mg PO DAILY Lisinopril [Prinivil] 40 mg PO DAILY Multivitamins [Tab-A-Donis] 1 tab PO DAILY Patient's Own Medication [Ptom] 1 each PO DAILY Plan: This 56 year old female admitted for R TKA, Hospitalist service consulted for medical management 1. S/P R TKA: Stable. Encourage IS 2. DM type 2: On insulin pump, BS stable. 3. HTN: Stable, continue medications. 4. Anemia: Chronic, takes Iron orally. Continue iron supplements. VTE prophylaxis: When deemed appropriate by Ortho, ASA BID ordered.
[2017-03-11] MEDS ORDERED: Sodium Chloride 0.9% 10 ML Syringe FLUSH PRN (08:02)
[2017-03-11] MEDS ORDERED: Sodium Chloride 0.9% 2.5 ML Syringe FLUSH PRN (08:02)
--- NOTE | 2017-03-11 08:02 | PCM.SURGPN ---
[id number] of Surgery/Procedure: 03/10/17 POD#: 1 Functional Status: Reports: pain controlled, tolerating diet, ambulating - Review of Systems General: Reports: No Symptoms Pulmonary: Reports: no symptoms Cardiovascular: Reports: No Symptoms Gastrointestinal: Reports: No symptoms Genitourinary: Reports: no symptoms Musculoskeletal: Reports: leg pain, joint pain, joint swelling Neurological: Reports: No Symptoms Psychiatric: Reports: no symptoms - Patient Data Vitals - most recent: Last Vital Signs Temp 36.1 C 03/11/17 07:42 Pulse 70 03/11/17 07:42 Resp 18 03/11/17 07:42 BP 109/68 03/11/17 07:42 Pulse Ox 97 03/11/17 07:42 Weight - most recent: 109.769 kg I&O - last 24 hours: Intake & Output 03/10/17 03/11/17 03/11/17 22:59 06:59 14:59 Intake Total 1983 1550 Output Total 200 1200 Balance 1783 350 Lab Results last 24 hrs: Laboratory Results - last 24 hr 03/10/17 03/10/17 03/10/17 Range/Units 08:03 11:43 11:43 WBC 7.25 (4.0-11.0) K/uL RBC 3.83 L (4.30-5.90) M/uL Hgb 11.0 L (12.0-16.0) g/dL Hct 35.1 L (36.0-46.0) % MCV 91.6 (80.0-98.0) fL MCH 28.7 (27.0-32.0) pg MCHC 31.3 (31.0-37.0) g/dL RDW Std Deviation 43.1 (28.0-62.0) fl RDW Coeff of Omero 13 (11.0-15.0) % Plt Count 326 (150-400) K/uL MPV 9.50 (7.40-12.00) fL Neut % (Auto) 58.1 (48.0-80.0) % Lymph % (Auto) 28.3 (16.0-40.0) % Vilas % (Auto) 7.6 (0.0-15.0) % Eos % (Auto) 5.7 (0.0-7.0) % Baso % (Auto) 0.3 (0.0-1.5) % Neut # (Auto) 4.2 (1.4-5.7) K/uL Lymph # (Auto) 2.1 (0.6-2.4) K/uL Vilas # (Auto) 0.6 (0.0-0.8) K/uL Eos # (Auto) 0.4 (0.0-0.7) K/uL Baso # (Auto) 0.0 (0.0-0.1) K/uL Nucleated RBC % 0.0 /100WBC Nucleated RBCs # 0 K/uL Sodium 141 (136-146) mmol/L Potassium 3.7 (3.5-5.1) mmol/L Chloride 107 (98-110) mmol/L Carbon Dioxide 25 (21-31) mmol/L BUN 28 H (6.0-23.0) mg/dL Creatinine 1.0 (0.6-1.5) mg/dL Est Cr Clr Drug Dosing 66.43 mL/min Estimated GFR (MDRD) 57.6 ml/min Glucose 156 H (60-110) mg/dL POC Glucose (60-110) mg/dL Calcium 8.4 L (8.8-10.8) mg/dL Iron (50-170) ug/dL TIBC (273-456) ug/dL % Saturation (20-55) % Total Bilirubin 0.2 (0.1-1.5) mg/dL AST 17 (5-40) IU/L ALT 24 (8-54) IU/L Alkaline Phosphatase 25 L (40-150) Total Protein 6.1 (6.0-8.0) g/dL Albumin 3.7 (3.5-5.0) g/dL Globulin 2.4 (2.0-3.5) g/dL Albumin/Globulin Ratio 1.5 (1.3-2.8) Blood Type A POSITIVE Antibody Screen NEGATIVE 03/10/17 03/10/17 03/10/17 Range/Units 12:03 15:58 20:16 WBC (4.0-11.0) K/uL RBC (4.30-5.90) M/uL Hgb (12.0-16.0) g/dL Hct (36.0-46.0) % MCV (80.0-98.0) fL MCH (27.0-32.0) pg MCHC (31.0-37.0) g/dL RDW Std Deviation (28.0-62.0) fl RDW Coeff of Omero (11.0-15.0) % Plt Count (150-400) K/uL MPV (7.40-12.00) fL Neut % (Auto) (48.0-80.0) % Lymph % (Auto) (16.0-40.0) % Vilas % (Auto) (0.0-15.0) % Eos % (Auto) (0.0-7.0) % Baso % (Auto) (0.0-1.5) % Neut # (Auto) (1.4-5.7) K/uL Lymph # (Auto) (0.6-2.4) K/uL Vilas # (Auto) (0.0-0.8) K/uL Eos # (Auto) (0.0-0.7) K/uL Baso # (Auto) (0.0-0.1) K/uL Nucleated RBC % /100WBC Nucleated RBCs # K/uL Sodium (136-146) mmol/L Potassium (3.5-5.1) mmol/L Chloride (98-110) mmol/L Carbon Dioxide (21-31) mmol/L BUN (6.0-23.0) mg/dL Creatinine (0.6-1.5) mg/dL Est Cr Clr Drug Dosing mL/min Estimated GFR (MDRD) ml/min Glucose (60-110) mg/dL POC Glucose 120 H 118 H 132 H (60-110) mg/dL Calcium (8.8-10.8) mg/dL Iron (50-170) ug/dL TIBC (273-456) ug/dL % Saturation (20-55) % Total Bilirubin (0.1-1.5) mg/dL AST (5-40) IU/L ALT (8-54) IU/L Alkaline Phosphatase (40-150) Total Protein (6.0-8.0) g/dL Albumin (3.5-5.0) g/dL Globulin (2.0-3.5) g/dL Albumin/Globulin Ratio (1.3-2.8) Blood Type Antibody Screen 03/11/17 03/11/17 03/11/17 Range/Units 03:57 04:23 04:23 WBC (4.0-11.0) K/uL RBC (4.30-5.90) M/uL Hgb 10.0 L (12.0-16.0) g/dL Hct 31.3 L (36.0-46.0) % MCV (80.0-98.0) fL MCH (27.0-32.0) pg MCHC (31.0-37.0) g/dL RDW Std Deviation (28.0-62.0) fl RDW Coeff of Omero (11.0-15.0) % Plt Count (150-400) K/uL MPV (7.40-12.00) fL Neut % (Auto) (48.0-80.0) % Lymph % (Auto) (16.0-40.0) % Vilas % (Auto) (0.0-15.0) % Eos % (Auto) (0.0-7.0) % Baso % (Auto) (0.0-1.5) % Neut # (Auto) (1.4-5.7) K/uL Lymph # (Auto) (0.6-2.4) K/uL Vil[place] # (Auto) (0.0-0.8) K/uL Eos # (Auto) (0.0-0.7) K/uL Baso # (Auto) (0.0-0.1) K/uL Nucleated RBC % /100WBC Nucleated RBCs # K/uL Sodium (136-146) mmol/L Potassium (3.5-5.1) mmol/L Chloride (98-110) mmol/L Carbon Dioxide (21-31) mmol/L BUN (6.0-23.0) mg/dL Creatinine (0.6-1.5) mg/dL Est Cr Clr Drug Dosing mL/min Estimated GFR (MDRD) ml/min Glucose (60-110) mg/dL POC Glucose 99 (60-110) mg/dL Calcium (8.8-10.8) mg/dL Iron 51 (50-170) ug/dL TIBC 361 (273-456) ug/dL % Saturation 14.13 L (20-55) % Total Bilirubin (0.1-1.5) mg/dL AST (5-40) IU/L ALT (8-54) IU/L Alkaline Phosphatase (40-150) Total Protein (6.0-8.0) g/dL Albumin (3.5-5.0) g/dL Globulin (2.0-3.5) g/dL Albumin/Globulin Ratio (1.3-2.8) Blood Type Antibody Screen Med Orders - Current: Current Medications Acetaminophen (Tylenol Extra Strength) 1,000 mg PO Q6H [facility] Last Admin: 03/11/17 06:35 Dose: 1,000 mg Al Hydroxide/Mg Hydroxide (Mag-Al Plus) 30 ml PO Q4H PRN PRN Reason: indigestion Ascorbic Acid (Vitamin C) 1,000 mg PO DAILY [facility] Aspirin (Aspirin) 325 mg PO BID [facility] Bisacodyl (Dulcolax) 10 mg RECTAL DAILY PRN PRN Reason: Constipation Cetirizine HCl (Zyrtec) 10 mg PO BID [facility] Last Admin: 03/10/17 20:14 Dose: 10 mg Diphenhydramine HCl (Benadryl) 25 - 50 mg PO Q6H PRN PRN Reason: Itching Last Admin: 03/10/17 23:38 Dose: 25 mg Docusate Sodium (Colace) 100 mg PO BID [facility] Last Admin: 03/10/17 20:14 Dose: 100 mg Ferrous Sulfate (Ferrous Sulfate) 325 mg PO DAILY [facility] Fluticasone Propionate (Flonase) 0 gm NASBOTH ASDIRECTED PRN PRN Reason: Allergies Gabapentin (Neurontin) 600 mg PO BID [facility] Last Admin: 03/10/17 20:16 Dose: 600 mg Hydrochlorothiazide (Hydrochlorothiazide) 25 mg PO DAILY [facility] Lactated Ringer's (Ringers, Lactated) 1,000 mls @ 100 mls/hr IV ASDIRECTED [facility] Last Admin: 03/11/17 07:33 Dose: 100 mls/hr Insulin Aspart (Novolog) 0 unit SUBCUT QIDACANDBED [facility] Last Admin: 03/10/17 20:24 Dose: Not Given Levothyroxine Sodium (Synthroid) 50 mcg PO DAILY@0730 [facility] Last Admin: 03/11/17 06:35 Dose: 50 mcg Lisinopril (Prinivil) 40 mg PO DAILY [facility] Morphine Sulfate (Morphine) 1 - 3 mg IVPUSH Q3H PRN PRN Reason: Pain Last Admin: 03/10/17 23:34 Dose: 3 mg Multivitamins/Minerals/Vitamin C (Tab-A-Donis) 1 tab PO DAILY [facility] Ondansetron HCl (Zofran) 4 mg IV Q6HR PRN PRN Reason: NAUSEA/VOMITING Last Admin: 03/10/17 14:08 Dose: 4 mg Oxycodone HCl (Oxycodone) 5 - 10 mg PO Q4H PRN PRN Reason: Pain Last Admin: 03/10/17 17:53 Dose: 10 mg Oxycodone HCl (Oxycontin) 10 mg PO Q12HR [facility] Last Admin: 03/10/17 20:13 Dose: 10 mg Fenofibrate 160 Mg 1 each PO DAILY [facility] Scopolamine (Transderm-Scop) 1.5 mg TRDERM ONARRIVE [facility] Last Admin: 03/10/17 07:15 Dose: 1.5 mg Trazodone HCl (Trazodone) 150 mg PO BEDTIME PRN PRN Reason: Insomnia Discontinued Medications Acetaminophen (Tylenol Extra Strength) 1,000 mg PO ONARRIVE [facility] Celecoxib (Celebrex) 200 mg PO DAILY [facility] Famotidine (Pepcid) 40 mg IVPUSH ONARRIVE [facility] Last Admin: 03/10/17 07:15 Dose: 40 mg Fentanyl (Sublimaze) Confirm Administered Dose 100 mcg .ROUTE .STK-MED ONE Stop: 03/10/17 06:49 Fentanyl (Sublimaze) 50 mcg IVPUSH Q5M PRN PRN Reason: Pain (severe 7-10) Stop: 03/11/17 09:05 Hydromorphone HCl (Dilaudid) 0.25 mg IVPUSH Q10M PRN PRN Reason: Pain (severe 7-10) Stop: 03/11/17 09:05 Clindamycin Phosphate 900 mg/ (Premix) 50 mls @ 100 mls/hr IV ONCALL [facility] Last Admin: 03/10/17 07:28 Dose: 100 mls/hr Ropivacaine 49.25 ml/Ketorolac Tromethamine 30 mg/Epinephrine HCl 0.5 mg/ Clonidine HCl 80 mcg/ Sodium Chloride 100 mls @ 50 mls/min INJECT ONETIME ONE Stop: 03/10/17 06:01 Last Admin: 03/10/17 10:21 Dose: Not Given Ropivacaine 49.25 ml/Ketorolac Tromethamine 30 mg/Epinephrine HCl 0.5 mg/ Clonidine HCl 80 mcg/ Sodium Chloride 100 mls @ 50 mls/min INJECT ONETIME ONE Stop: 03/10/17 07:16 Last Admin: 03/10/17 10:22 Dose: Not Given Clindamycin Phosphate 900 mg/ (Premix) 50 mls @ 100 mls/hr IV Q8H [facility] Stop: 03/11/17 01:29 Last Infusion: 03/11/17 05:59 Dose: Infused Ketorolac Tromethamine (Toradol) 30 mg IVPUSH ONARRIVE [facility] Last Admin: 03/10/17 07:10 Dose: 30 mg Ketorolac Tromethamine (Toradol) 30 mg IVPUSH Q6H [facility] Stop: 03/11/17 09:00 Last Admin: 03/10/17 12:20 Dose: 30 mg Lidocaine (Xylocaine-Mpf 2%) Confirm Administered Dose 10 ml .ROUTE .STK-MED ONE Stop: 03/10/17 09:38 Metoclopramide HCl (Reglan) 10 mg IVPUSH ONETIME ONE Stop: 03/10/17 09:05 Last Admin: 03/10/17 10:24 Dose: Not Given Midazolam HCl (Versed 1 Mg/Ml) Confirm Administered Dose 2 mg .ROUTE .STK-MED ONE Stop: 03/10/17 06:49 Morphine Sulfate (Morphine) 1 - 3 mg IVPUSH Q3H PRN PRN Reason: Pain Ondansetron HCl (Zofran) 4 mg IVPUSH ONETIME ONE Stop: 03/10/17 09:05 Last Admin: 03/10/17 10:24 Dose: Not Given Oxycodone HCl (Oxycontin) 10 mg PO ONARRIVE [facility] Propofol (Diprivan 20 Ml) Confirm Administered Dose 200 mg .ROUTE .STK-MED ONE Stop: 03/10/17 06:50 Propofol (Diprivan 20 Ml) Confirm Administered Dose 200 mg .ROUTE .STK-MED ONE Stop: 03/10/17 08:33 Tranexamic Acid (Cyklokapron) 4,000 mg IV SEECOMMENT [facility] Tranexamic Acid (Cyklokapron) Confirm Administered Dose 2,000 mg .ROUTE .STK- MED ONE Stop: 03/10/17 06:52 - Exam Wound/Incisions: dressing dry and intact General: alert, oriented HEENT: Pupils equal, Pupils reactive Neck: trachea midline Lungs: Normal respiratory effort Cardiovascular: Regular Rate Extremities: other (Right anterior tibialis, extensor hallucis longus and gastrocnemius strength +5/5 bilaterally. Sensation intact. Dorsalis pedis and posterior tibial pulses +2 bilaterally. ) Neurological: no new focal deficit Psy/Mental Status: alert, normal affect, normal mood - Problem List Review Problem List Initiated/Reviewed/Updated: Yes - My Orders Last 24 Hours: Active Orders 24 hr Category Date Time Status Patient Status [ADT] Routine ADT 03/10/17 09:54 Active Transfer Patient (Change bed) [ADT] Routine ADT 03/10/17 09:54 Ordered Activity as Tolerated [RC] .Routine Care 03/10/17 09:55 Active Blood Glucose Check, Bedside [RC] Q4HR Care 03/10/17 12:45 Active Communication Order [RC] DAILY Care 03/10/17 12:20 Active Intake and Output [RC] Q12H Care 03/10/17 09:55 Active Neurovascular Check [RC] Q2HR Care 03/10/17 09:55 Active Notify Provider Consults [RC] ASDIRECTED Care 03/10/17 09:58 Active Notify Provider Vital Signs [RC] ASDIRECTED Care 03/10/17 09:55 Active RT Incentive Spirometry [RC] ASDIRECTED Care 03/10/17 09:55 Active Vital Signs [RC] Q4H Care 03/10/17 09:55 Active Consult to Physician [CONS] Routine Cons 03/10/17 09:55 Active PT Evaluation and Treatment [CONS] Routine Cons 03/10/17 09:55 Active BMP [BASIC METABOLIC PANEL,BMP] [CHEM] Routine Lab 03/11/17 04:37 Received HEMOGLOBIN/HEMATOCRIT,HH [HEME] DAILY Lab 03/12/17 07:00 Ordered HEMOGLOBIN/HEMATOCRIT,HH [HEME] DAILY Lab 03/13/17 07:00 Ordered Acetaminophen [Tylenol Extra Strength] Med 03/10/17 12:00 Active 1,000 mg PO Q6H Alum Hydrox/Mag Hydrox/Simeth [Mag-Al Plus] Med 03/10/17 09:56 Active 30 ml PO Q4H PRN Ascorbic Acid [Vitamin C] Med 03/11/17 09:00 Active 1,000 mg PO DAILY Aspirin Med 03/11/17 09:00 Active 325 mg PO BID Bisacodyl [Dulcolax] Med 03/10/17 09:56 Active 10 mg RECTAL DAILY PRN Cetirizine [ZyrTEC] Med 03/10/17 21:00 Active 10 mg PO BID Docusate Sodium [Colace] Med 03/10/17 21:00 Active 100 mg PO BID Ferrous Sulfate Med 03/11/17 09:00 Active 325 mg PO DAILY Fluticasone Propionate [Flonase] Med 03/10/17 11:36 Active 0 gm NASBOTH ASDIRECTED PRN Gabapentin [Neurontin] Med 03/10/17 21:00 Active 600 mg PO BID Hydrochlorothiazide Med 03/11/17 09:00 Active 25 mg PO DAILY Insulin Aspart [NovoLOG] Med 03/10/17 18:00 Active 0 unit SUBCUT QIDACANDBED Levothyroxine [Synthroid] Med 03/11/17 07:30 Active 50 mcg PO DAILY@0730 Lisinopril [Prinivil] Med 03/11/17 09:00 Active 40 mg PO DAILY Morphine Med 03/10/17 12:49 Active 1 - 3 mg IVPUSH Q3H PRN Multivitamins [Tab-A-Donis] Med 03/11/17 09:00 Active 1 tab PO DAILY Ondansetron [Zofran] Med 03/10/17 09:55 Active 4 mg IV Q6HR PRN Patient's Own Medication [Ptom] Med 03/11/17 09:00 Active 1 each PO DAILY diphenhydrAMINE [Benadryl] Med 03/10/17 08:15 Active 25 - 50 mg PO Q6H PRN oxyCODONE Med 03/10/17 09:56 Active 5 - 10 mg PO Q4H PRN oxyCODONE ER [OxyCONTIN] Med 03/10/17 21:00 Active 10 mg PO Q12HR traZODone Med 03/10/17 11:36 Active 150 mg PO BEDTIME PRN Ice Therapy [OM.PC] Routine Oth 03/10/17 09:55 Ordered Medication Orders Acetaminophen (Tylenol Extra Strength) 1,000 mg PO Q6H [facility] Last Admin: 03/11/17 06:35 Dose: 1,000 mg Admin: 03/10/17 23:38 Dose: 1,000 mg Admin: 03/10/17 17:03 Dose: 1,000 mg Admin: 03/10/17 12:19 Dose: 1,000 mg Al Hydroxide/Mg Hydroxide (Mag-Al Plus) 30 ml PO Q4H PRN PRN Reason: indigestion Ascorbic Acid (Vitamin C) 1,000 mg PO DAILY [facility] Aspirin (Aspirin) 325 mg PO BID [facility] Bisacodyl (Dulcolax) 10 mg RECTAL DAILY PRN PRN Reason: Constipation Cetirizine HCl (Zyrtec) 10 mg PO BID [facility] Last Admin: 03/10/17 20:14 Dose: 10 mg Diphenhydramine HCl (Benadryl) 25 - 50 mg PO Q6H PRN PRN Reason: Itching Last Admin: 03/10/17 23:38 Dose: 25 mg Docusate Sodium (Colace) 100 mg PO BID [facility] Last Admin: 03/10/17 20:14 Dose: 100 mg Ferrous Sulfate (Ferrous Sulfate) 325 mg PO DAILY [facility] Fluticasone Propionate (Flonase) 0 gm NASBOTH ASDIRECTED PRN PRN Reason: Allergies Gabapentin (Neurontin) 600 mg PO BID [facility] Last Admin: 03/10/17 20:16 Dose: 600 mg Hydrochlorothiazide (Hydrochlorothiazide) 25 mg PO DAILY [facility] Lactated Ringer's (Ringers, Lactated) 1,000 mls @ 100 mls/hr IV ASDIRECTED [facility] Last Admin: 03/11/17 07:33 Dose: 100 mls/hr Infusion: 03/11/17 06:48 Dose: 100 mls/hr Admin: 03/10/17 20:48 Dose: 100 mls/hr Infusion: 03/10/17 20:48 Dose: 100 mls/hr Infusion: 03/10/17 20:47 Dose: 100 mls/hr Admin: 03/10/17 10:57 Dose: 100 mls/hr Insulin Aspart (Novolog) 0 unit SUBCUT QIDACANDBED [facility] Last Admin: 03/10/17 20:24 Dose: Admin: 03/10/17 17:55 Dose: Not Given Levothyroxine Sodium (Synthroid) 50 mcg PO DAILY@0730 [facility] Last Admin: 03/11/17 06:35 Dose: 50 mcg Lisinopril (Prinivil) 40 mg PO DAILY [facility] Morphine Sulfate (Morphine) 1 - 3 mg IVPUSH Q3H PRN PRN Reason: Pain Last Admin: 03/10/17 23:34 Dose: 3 mg Admin: 03/10/17 15:19 Dose: 3 mg Multivitamins/Minerals/Vitamin C (Tab-A-Donis) 1 tab PO DAILY [facility] Ondansetron HCl (Zofran) 4 mg IV Q6HR PRN PRN Reason: NAUSEA/VOMITING Last Admin: 03/10/17 14:08 Dose: 4 mg Oxycodone HCl (Oxycodone) 5 - 10 mg PO Q4H PRN PRN Reason: Pain Last Admin: 03/10/17 17:53 Dose: 10 mg Admin: 03/10/17 13:00 Dose: 10 mg Oxycodone HCl (Oxycontin) 10 mg PO Q12HR [facility] Last Admin: 03/10/17 20:13 Dose: 10 mg Fenofibrate 160 Mg 1 each PO DAILY [facility] Scopolamine (Transderm-Scop) 1.5 mg TRDERM ONARRIVE [facility] Last Admin: 03/10/17 07:15 Dose: 1.5 mg Trazodone HCl (Trazodone) 150 mg PO BEDTIME PRN PRN Reason: Insomnia - Assessment Assessment (Free Text/Narrative):: Patient up to chair this AM Tolerating diet Pain controlled this AM, was uncontrolled overnight Pt denies chest pain, SOB, dizziness or abdominal pain today Hgb 10 UO 1535 mL VSS - Plan Plan (Free Text/Narrative):: Continue pain management Encourage ambulation Continue PT Remove hills, IV to saline lock Start Aspirin 325 mg PO BID for DVT prophylaxis Likely D/C home tomorrow if doing well with PT and pain control <Lena Lozada R - Last Filed: 03/12/17 09:21> - Patient Data Vitals - most recent: Last Vital Signs Temp 97.5 F 03/12/17 07:32 Pulse 92 03/12/17 07:32 Resp 16 03/12/17 07:32 BP 142/63 H 03/12/17 08:10 Pulse Ox 95 03/12/17 07:32 I&O - last 24 hours: Intake & Output 03/11/17 03/12/17 03/12/17 22:59 06:59 14:59 Intake Total 1750 850 Output Total 3050 3050 Balance -1300 -2200 Lab Results last 24 hrs: Laboratory Results - last 24 hr 03/12/17 03/12/17 Range/Units 04:26 04:26 Hgb 11.7 L (12.0-16.0) g/dL Hct 36.5 (36.0-46.0) % Sodium 141 (136-146) mmol/L Potassium 4.6 (3.5-5.1) mmol/L Chloride 107 (98-110) mmol/L Carbon Dioxide 28 (21-31) mmol/L BUN 22 (6.0-23.0) mg/dL Creatinine 1.0 (0.6-1.5) mg/dL Est Cr Clr Drug Dosing 66.43 mL/min Estimated GFR (MDRD) 57.6 ml/min Glucose 145 H (60-110) mg/dL Calcium 9.1 (8.8-10.8) mg/dL Med Orders - Current: Current Medications Acetaminophen (Tylenol Extra Strength) 1,000 mg PO Q6H [facility] Last Admin: 03/12/17 06:34 Dose: 1,000 mg Al Hydroxide/Mg Hydroxide (Mag-Al Plus) 30 ml PO Q4H PRN PRN Reason: indigestion Ascorbic Acid (Vitamin C) 1,000 mg PO DAILY [facility] Last Admin: 03/12/17 08:12 Dose: 1,000 mg Aspirin (Aspirin) 325 mg PO BID [facility] Last Admin: 03/12/17 08:11 Dose: 325 mg Bisacodyl (Dulcolax) 10 mg RECTAL DAILY PRN PRN Reason: Constipation Cetirizine HCl (Zyrtec) 10 mg PO BID [facility] Last Admin: 03/12/17 08:11 Dose: 10 mg Diphenhydramine HCl (Benadryl) 25 - 50 mg PO Q6H PRN PRN Reason: Itching Last Admin: 03/10/17 23:38 Dose: 25 mg Docusate Sodium (Colace) 100 mg PO BID [facility] Last Admin: 03/12/17 08:12 Dose: 100 mg Ferrous Sulfate (Ferrous Sulfate) 325 mg PO DAILY [facility] Last Admin: 03/12/17 08:11 Dose: 325 mg Fluticasone Propionate (Flonase) 0 gm NASBOTH ASDIRECTED PRN PRN Reason: Allergies Gabapentin (Neurontin) 600 mg PO BID [facility] Last Admin: 03/12/17 08:10 Dose: 600 mg Hydrochlorothiazide (Hydrochlorothiazide) 25 mg PO DAILY [facility] Last Admin: 03/12/17 08:12 Dose: 25 mg Insulin Aspart (Novolog) 0 unit SUBCUT QIDACANDBED [facility] Last Admin: 03/12/17 06:38 Dose: Not Given Levothyroxine Sodium (Synthroid) 50 mcg PO DAILY@0730 [facility] Last Admin: 03/12/17 06:35 Dose: 50 mcg Lisinopril (Prinivil) 40 mg PO DAILY [facility] Last Admin: 03/12/17 08:10 Dose: 40 mg Morphine Sulfate (Morphine) 1 - 3 mg IVPUSH Q3H PRN PRN Reason: Pain Last Admin: 03/12/17 03:28 Dose: 3 mg Multivitamins/Minerals/Vitamin C (Tab-A-Donis) 1 tab PO DAILY [facility] Last Admin: 03/12/17 08:12 Dose: 1 tab Ondansetron HCl (Zofran) 4 mg IV Q6HR PRN PRN Reason: NAUSEA/VOMITING Last Admin: 03/10/17 14:08 Dose: 4 mg Oxycodone HCl (Oxycodone) 5 - 10 mg PO Q4H PRN PRN Reason: Pain Last Admin: 03/12/17 06:35 Dose: 10 mg Oxycodone HCl (Oxycontin) 10 mg PO Q12HR [facility] Last Admin: 03/12/17 08:12 Dose: 10 mg Fenofibrate 160 Mg 1 each PO DAILY [facility] Last Admin: 03/12/17 08:16 Dose: 1 each Scopolamine (Transderm-Scop) 1.5 mg TRDERM ONARRIVE [facility] Last Admin: 03/10/17 07:15 Dose: 1.5 mg Sodium Chloride (Saline Flush) 10 ml FLUSH ASDIRECTED PRN PRN Reason: Keep Vein Open Sodium Chloride (Saline Flush) 2.5 ml FLUSH ASDIRECTED PRN PRN Reason: Keep Vein Open Trazodone HCl (Trazodone) 150 mg PO BEDTIME PRN PRN Reason: Insomnia Discontinued Medications Acetaminophen (Tylenol Extra Strength) 1,000 mg PO ONARRIVE [facility] Celecoxib (Celebrex) 200 mg PO DAILY [facility] Famotidine (Pepcid) 40 mg IVPUSH ONARRIVE [facility] Last Admin: 03/10/17 07:15 Dose: 40 mg Fentanyl (Sublimaze) Confirm Administered Dose 100 mcg .ROUTE .STK-MED ONE Stop: 03/10/17 06:49 Fentanyl (Sublimaze) 50 mcg IVPUSH Q5M PRN PRN Reason: Pain (severe 7-10) Stop: 03/11/17 09:05 Hydromorphone HCl (Dilaudid) 0.25 mg IVPUSH Q10M PRN PRN Reason: Pain (severe 7-10) Stop: 03/11/17 09:05 Clindamycin Phosphate 900 mg/ (Premix) 50 mls @ 100 mls/hr IV ONCALL [facility] Last Admin: 03/10/17 07:28 Dose: 100 mls/hr Ropivacaine 49.25 ml/Ketorolac Tromethamine 30 mg/Epinephrine HCl 0.5 mg/ Clonidine HCl 80 mcg/ Sodium Chloride 100 mls @ 50 mls/min INJECT ONETIME ONE Stop: 03/10/17 06:01 Last Admin: 03/10/17 10:21 Dose: Not Given Lactated Ringer's (Ringers, Lactated) 1,000 mls @ 100 mls/hr IV ASDIRECTED [facility] Last Admin: 03/11/17 07:33 Dose: 100 mls/hr Ropivacaine 49.25 ml/Ketorolac Tromethamine 30 mg/Epinephrine HCl 0.5 mg/ Clonidine HCl 80 mcg/ Sodium Chloride 100 mls @ 50 mls/min INJECT ONETIME ONE Stop: 03/10/17 07:16 Last Admin: 03/10/17 10:22 Dose: Not Given Clindamycin Phosphate 900 mg/ (Premix) 50 mls @ 100 mls/hr IV Q8H [facility] Stop: 03/11/17 01:29 Last Infusion: 03/11/17 05:59 Dose: Infused Ketorolac Tromethamine (Toradol) 30 mg IVPUSH ONARRIVE [facility] Last Admin: 03/10/17 07:10 Dose: 30 mg Ketorolac Tromethamine (Toradol) 30 mg IVPUSH Q6H [facility] Stop: 03/11/17 09:00 Last Admin: 03/10/17 12:20 Dose: 30 mg Lidocaine (Xylocaine-Mpf 2%) Confirm Administered Dose 10 ml .ROUTE .STK-MED ONE Stop: 03/10/17 09:38 Metoclopramide HCl (Reglan) 10 mg IVPUSH ONETIME ONE Stop: 03/10/17 09:05 Last Admin: 03/10/17 10:24 Dose: Not Given Midazolam HCl (Versed 1 Mg/Ml) Confirm Administered Dose 2 mg .ROUTE .STK-MED ONE Stop: 03/10/17 06:49 Morphine Sulfate (Morphine) 1 - 3 mg IVPUSH Q3H PRN PRN Reason: Pain Ondansetron HCl (Zofran) 4 mg IVPUSH ONETIME ONE Stop: 03/10/17 09:05 Last Admin: 03/10/17 10:24 Dose: Not Given Oxycodone HCl (Oxycontin) 10 mg PO ONARRIVE [facility] Propofol (Diprivan 20 Ml) Confirm Administered Dose 200 mg .ROUTE .STK-MED ONE Stop: 03/10/17 06:50 Propofol (Diprivan 20 Ml) Confirm Administered Dose 200 mg .ROUTE .STK-MED ONE Stop: 03/10/17 08:33 Tranexamic Acid (Cyklokapron) 4,000 mg IV SEECOMMENT [facility] Tranexamic Acid (Cyklokapron) Confirm Administered Dose 2,000 mg .ROUTE .STK- MED ONE Stop: 03/10/17 06:52 - My Orders Last 24 Hours: Active Orders 24 hr Category Date Time Status HEMOGLOBIN/HEMATOCRIT,HH [HEME] DAILY Lab 03/13/17 07:00 Ordered Ascorbic Acid [Vitamin C] Med 03/11/17 09:00 Active 1,000 mg PO DAILY Aspirin Med 03/11/17 09:00 Active 325 mg PO BID Ferrous Sulfate Med 03/11/17 09:00 Active 325 mg PO DAILY Hydrochlorothiazide Med 03/11/17 09:00 Active 25 mg PO DAILY Lisinopril [Prinivil] Med 03/11/17 09:00 Active 40 mg PO DAILY Multivitamins [Tab-A-Donis] Med 03/11/17 09:00 Active 1 tab PO DAILY Patient's Own Medication [Ptom] Med 03/11/17 09:00 Active 1 each PO DAILY Medication Orders Acetaminophen (Tylenol Extra Strength) 1,000 mg PO Q6H [facility] Last Admin: 03/12/17 06:34 Dose: 1,000 mg Admin: 03/11/17 23:03 Dose: 1,000 mg Admin: 03/11/17 17:36 Dose: 1,000 mg Admin: 03/11/17 12:28 Dose: 1,000 mg Admin: 03/11/17 06:35 Dose: 1,000 mg Admin: 03/10/17 23:38 Dose: 1,000 mg Admin: 03/10/17 17:03 Dose: 1,000 mg Admin: 03/10/17 12:19 Dose: 1,000 mg Al Hydroxide/Mg Hydroxide (Mag-Al Plus) 30 ml PO Q4H PRN PRN Reason: indigestion Ascorbic Acid (Vitamin C) 1,000 mg PO DAILY [facility] Last Admin: 03/12/17 08:12 Dose: 1,000 mg Admin: 03/11/17 08:30 Dose: 1,000 mg Aspirin (Aspirin) 325 mg PO BID [facility] Last Admin: 03/12/17 08:11 Dose: 325 mg Admin: 03/11/17 20:55 Dose: 325 mg Admin: 03/11/17 08:25 Dose: 325 mg Bisacodyl (Dulcolax) 10 mg RECTAL DAILY PRN PRN Reason: Constipation Cetirizine HCl (Zyrtec) 10 mg PO BID [facility] Last Admin: 03/12/17 08:11 Dose: 10 mg Admin: 03/11/17 20:56 Dose: 10 mg Admin: 03/11/17 08:30 Dose: 10 mg Admin: 03/10/17 20:14 Dose: 10 mg Diphenhydramine HCl (Benadryl) 25 - 50 mg PO Q6H PRN PRN Reason: Itching Last Admin: 03/10/17 23:38 Dose: 25 mg Docusate Sodium (Colace) 100 mg PO BID [facility] Last Admin: 03/12/17 08:12 Dose: 100 mg Admin: 03/11/17 20:55 Dose: 100 mg Admin: 03/11/17 08:28 Dose: 100 mg Admin: 03/10/17 20:14 Dose: 100 mg Ferrous Sulfate (Ferrous Sulfate) 325 mg PO DAILY [facility] Last Admin: 03/12/17 08:11 Dose: 325 mg Admin: 03/11/17 08:30 Dose: 325 mg Fluticasone Propionate (Flonase) 0 gm NASBOTH ASDIRECTED PRN PRN Reason: Allergies Gabapentin (Neurontin) 600 mg PO BID [facility] Last Admin: 03/12/17 08:10 Dose: 600 mg Admin: 03/11/17 20:57 Dose: 600 mg Admin: 03/11/17 08:29 Dose: 600 mg Admin: 03/10/17 20:16 Dose: 600 mg Hydrochlorothiazide (Hydrochlorothiazide) 25 mg PO DAILY [facility] Last Admin: 03/12/17 08:12 Dose: 25 mg Admin: 03/11/17 08:28 Dose: 25 mg Insulin Aspart (Novolog) 0 unit SUBCUT QIDACANDBED [facility] Last Admin: 03/12/17 06:38 Dose: Not Given Admin: 03/11/17 21:00 Dose: Not Given Admin: 03/11/17 16:47 Dose: Admin: 03/11/17 12:30 Dose: Admin: 03/11/17 08:33 Dose: Admin: 03/10/17 20:24 Dose: Admin: 03/10/17 17:55 Dose: Not Given Levothyroxine Sodium (Synthroid) 50 mcg PO DAILY@0730 [facility] Last Admin: 03/12/17 06:35 Dose: 50 mcg Admin: 03/11/17 06:35 Dose: 50 mcg Lisinopril (Prinivil) 40 mg PO DAILY [facility] Last Admin: 03/12/17 08:10 Dose: 40 mg Admin: 03/11/17 08:27 Dose: 40 mg Morphine Sulfate (Morphine) 1 - 3 mg IVPUSH Q3H PRN PRN Reason: Pain Last Admin: 03/12/17 03:28 Dose: 3 mg Admin: 03/11/17 23:02 Dose: 3 mg Admin: 03/11/17 19:30 Dose: 3 mg Admin: 03/11/17 16:29 Dose: 3 mg Admin: 03/10/17 23:34 Dose: 3 mg Admin: 03/10/17 15:19 Dose: 3 mg Multivitamins/Minerals/Vitamin C (Tab-A-Donis) 1 tab PO DAILY [facility] Last Admin: 03/12/17 08:12 Dose: 1 tab Admin: 03/11/17 08:25 Dose: 1 tab Ondansetron HCl (Zofran) 4 mg IV Q6HR PRN PRN Reason: NAUSEA/VOMITING Last Admin: 03/10/17 14:08 Dose: 4 mg Oxycodone HCl (Oxycodone) 5 - 10 mg PO Q4H PRN PRN Reason: Pain Last Admin: 03/12/17 06:35 Dose: 10 mg Admin: 03/12/17 01:14 Dose: 10 mg Admin: 03/11/17 21:30 Dose: 10 mg Admin: 03/11/17 17:37 Dose: 10 mg Admin: 03/11/17 13:21 Dose: 10 mg Admin: 03/10/17 17:53 Dose: 10 mg Admin: 03/10/17 13:00 Dose: 10 mg Oxycodone HCl (Oxycontin) 10 mg PO Q12HR [facility] Last Admin: 03/12/17 08:12 Dose: 10 mg Admin: 03/11/17 20:56 Dose: 10 mg Admin: 03/11/17 08:29 Dose: 10 mg Admin: 03/10/17 20:13 Dose: 10 mg Fenofibrate 160 Mg 1 each PO DAILY [facility] Last Admin: 03/12/17 08:16 Dose: 1 each Admin: 03/11/17 08:34 Dose: Scopolamine (Transderm-Scop) 1.5 mg TRDERM ONARRIVE [facility] Last Admin: 03/10/17 07:15 Dose: 1.5 mg Sodium Chloride (Saline Flush) 10 ml FLUSH ASDIRECTED PRN PRN Reason: Keep Vein Open Sodium Chloride (Saline Flush) 2.5 ml FLUSH ASDIRECTED PRN PRN Reason: Keep Vein Open Trazodone HCl (Trazodone) 150 mg PO BEDTIME PRN PRN Reason: Insomnia - Plan Plan (Free Text/Narrative):: Late entry: Patient was seen and examined yesterday at 1300. Patient states pain was well controlled. Was progressing with PT. Dressing dry/intact. NVI. will plan to continue pain management and increase activity as tolerated. Probably discharge tomorrow.
[2017-03-11] MEDS: Multivitamin Tab PO SCH (08:25)
[2017-03-11] MEDS: Aspirin 325 MG Tab PO SCH ×2 (08:25→20:55)
[2017-03-11] MEDS: Lisinopril 10 MG Tab PO SCH (08:27)
[2017-03-11] MEDS: Docusate Sodium 100 MG Cap PO SCH ×2 (08:28→20:55)
[2017-03-11] MEDS: Hydrochlorothiazide 25 MG Tab PO SCH (08:28)
[2017-03-11] MEDS: oxyCODONE ER 10 MG TAB.ER PO SCH ×2 (08:29→20:56)
[2017-03-11] MEDS: Gabapentin 300 MG Cap PO SCH ×2 (08:29→20:57)
[2017-03-11] MEDS: Cetirizine 10 MG Tab PO SCH ×2 (08:30→20:56)
[2017-03-11] MEDS: Ferrous Sulfate 325 MG Tab PO SCH (08:30)
[2017-03-11] MEDS: Ascorbic Acid 500 MG Tab PO SCH (08:30)
[2017-03-11] MEDS ORDERED: Celecoxib 100 MG Cap PO SCH (09:00)
[2017-03-11] MEDS ORDERED: Non-Formulary Medication 1 Each (Lisinopril/Hydrochlorothiazide [Lisinopril-Hctz 20-12.5 M PO SCH (09:00)
[2017-03-11] MEDS: oxyCODONE 5 MG Tab PO PRN ×3 (13:21→21:30)
[2017-03-11] MEDS: Morphine 4 MG/ML Syringe IVPUSH PRN ×3 (16:29→23:02)
[2017-03-12] MEDS: oxyCODONE 5 MG Tab PO PRN ×3 (01:14→13:16)
[2017-03-12] MEDS: Morphine 4 MG/ML Syringe IVPUSH PRN ×2 (03:28→09:44)
[2017-03-12] MEDS: Acetaminophen 500 MG Tab PO SCH ×2 (06:34→11:49)
[2017-03-12] MEDS: Levothyroxine 50 MCG Tab PO SCH (06:35)
--- NOTE | 2017-03-12 07:36 | PCM.CONSN ---
- General Info Date of Service: 03/12/17 Admission Dx/Problem (Free Text): Admission Diagnosis/Problem Admission Diagnosis/Problem Replacement of total knee joint Subjective Update: Sitting up in chair. Reports pain is still elevated to R thigh and knee. Denies any chest pain or SOB. BS have been controlled, she has insulin pump intact. Functional Status: Reports: tolerating diet, ambulating, urinating - Review of Systems General: Reports: No Symptoms. Denies: Fever Pulmonary: Reports: no symptoms. Denies: shortness of breath, cough, sputum Cardiovascular: Reports: No Symptoms. Denies: Chest Pain, Edema Gastrointestinal: Reports: No symptoms. Denies: Abdominal pain, Nausea, Vomiting Genitourinary: Reports: no symptoms. Denies: dysuria, frequency, burning Neurological: Reports: No Symptoms Psychiatric: Reports: no symptoms - Patient Data Vitals - most recent: Last Vital Signs Temp 97.5 F 03/12/17 07:32 Pulse 92 03/12/17 07:32 Resp 16 03/12/17 07:32 BP 142/63 H 03/12/17 07:32 Pulse Ox 95 03/12/17 07:32 Weight - most recent: 109.769 kg I&O - last 24 hours: Intake & Output 03/11/17 03/12/17 03/12/17 22:59 06:59 14:59 Intake Total 1750 850 Output Total 3050 3050 Balance -1300 -2200 Lab Results last 24 hrs: Laboratory Results - last 24 hr 03/11/17 03/11/17 03/12/17 Range/Units 04:23 04:37 04:26 Hgb 11.7 L (12.0-16.0) g/dL Hct 36.5 (36.0-46.0) % Sodium 136 (136-146) mmol/L Potassium 4.1 (3.5-5.1) mmol/L Chloride 102 (98-110) mmol/L Carbon Dioxide 24 (21-31) mmol/L BUN 27 H (6.0-23.0) mg/dL Creatinine 1.0 (0.6-1.5) mg/dL Est Cr Clr Drug Dosing 66.43 mL/min Estimated GFR (MDRD) 57.6 ml/min Glucose 95 (60-110) mg/dL Calcium 7.7 L (8.8-10.8) mg/dL Iron 51 (50-170) ug/dL TIBC 361 (273-456) ug/dL % Saturation 14.13 L (20-55) % 03/12/17 Range/Units 04:26 Hgb (12.0-16.0) g/dL Hct (36.0-46.0) % Sodium 141 (136-146) mmol/L Potassium 4.6 (3.5-5.1) mmol/L Chloride 107 (98-110) mmol/L Carbon Dioxide 28 (21-31) mmol/L BUN 22 (6.0-23.0) mg/dL Creatinine 1.0 (0.6-1.5) mg/dL Est Cr Clr Drug Dosing 66.43 mL/min Estimated GFR (MDRD) 57.6 ml/min Glucose 145 H (60-110) mg/dL Calcium 9.1 (8.8-10.8) mg/dL Iron (50-170) ug/dL TIBC (273-456) ug/dL % Saturation (20-55) % Med Orders - Current: Current Medications Acetaminophen (Tylenol Extra Strength) 1,000 mg PO Q6H [facility] Last Admin: 03/12/17 06:34 Dose: 1,000 mg Al Hydroxide/Mg Hydroxide (Mag-Al Plus) 30 ml PO Q4H PRN PRN Reason: indigestion Ascorbic Acid (Vitamin C) 1,000 mg PO DAILY [facility] Last Admin: 03/11/17 08:30 Dose: 1,000 mg Aspirin (Aspirin) 325 mg PO BID [facility] Last Admin: 03/11/17 20:55 Dose: 325 mg Bisacodyl (Dulcolax) 10 mg RECTAL DAILY PRN PRN Reason: Constipation Cetirizine HCl (Zyrtec) 10 mg PO BID [facility] Last Admin: 03/11/17 20:56 Dose: 10 mg Diphenhydramine HCl (Benadryl) 25 - 50 mg PO Q6H PRN PRN Reason: Itching Last Admin: 03/10/17 23:38 Dose: 25 mg Docusate Sodium (Colace) 100 mg PO BID [facility] Last Admin: 03/11/17 20:55 Dose: 100 mg Ferrous Sulfate (Ferrous Sulfate) 325 mg PO DAILY [facility] Last Admin: 03/11/17 08:30 Dose: 325 mg Fluticasone Propionate (Flonase) 0 gm NASBOTH ASDIRECTED PRN PRN Reason: Allergies Gabapentin (Neurontin) 600 mg PO BID [facility] Last Admin: 03/11/17 20:57 Dose: 600 mg Hydrochlorothiazide (Hydrochlorothiazide) 25 mg PO DAILY [facility] Last Admin: 03/11/17 08:28 Dose: 25 mg Insulin Aspart (Novolog) 0 unit SUBCUT QIDACANDBED [facility] Last Admin: 03/12/17 06:38 Dose: Not Given Levothyroxine Sodium (Synthroid) 50 mcg PO DAILY@0730 [facility] Last Admin: 03/12/17 06:35 Dose: 50 mcg Lisinopril (Prinivil) 40 mg PO DAILY [facility] Last Admin: 03/11/17 08:27 Dose: 40 mg Morphine Sulfate (Morphine) 1 - 3 mg IVPUSH Q3H PRN PRN Reason: Pain Last Admin: 03/12/17 03:28 Dose: 3 mg Multivitamins/Minerals/Vitamin C (Tab-A-Donis) 1 tab PO DAILY [facility] Last Admin: 03/11/17 08:25 Dose: 1 tab Ondansetron HCl (Zofran) 4 mg IV Q6HR PRN PRN Reason: NAUSEA/VOMITING Last Admin: 03/10/17 14:08 Dose: 4 mg Oxycodone HCl (Oxycodone) 5 - 10 mg PO Q4H PRN PRN Reason: Pain Last Admin: 03/12/17 06:35 Dose: 10 mg Oxycodone HCl (Oxycontin) 10 mg PO Q12HR [facility] Last Admin: 03/11/17 20:56 Dose: 10 mg Fenofibrate 160 Mg 1 each PO DAILY [facility] Last Admin: 03/11/17 08:34 Dose: Not Given Scopolamine (Transderm-Scop) 1.5 mg TRDERM ONARRIVE [facility] Last Admin: 03/10/17 07:15 Dose: 1.5 mg Sodium Chloride (Saline Flush) 10 ml FLUSH ASDIRECTED PRN PRN Reason: Keep Vein Open Sodium Chloride (Saline Flush) 2.5 ml FLUSH ASDIRECTED PRN PRN Reason: Keep Vein Open Trazodone HCl (Trazodone) 150 mg PO BEDTIME PRN PRN Reason: Insomnia Discontinued Medications Acetaminophen (Tylenol Extra Strength) 1,000 mg PO ONARRIVE [facility] Celecoxib (Celebrex) 200 mg PO DAILY [facility] Famotidine (Pepcid) 40 mg IVPUSH ONARRIVE [facility] Last Admin: 03/10/17 07:15 Dose: 40 mg Fentanyl (Sublimaze) Confirm Administered Dose 100 mcg .ROUTE .STK-MED ONE Stop: 03/10/17 06:49 Fentanyl (Sublimaze) 50 mcg IVPUSH Q5M PRN PRN Reason: Pain (severe 7-10) Stop: 03/11/17 09:05 Hydromorphone HCl (Dilaudid) 0.25 mg IVPUSH Q10M PRN PRN Reason: Pain (severe 7-10) Stop: 03/11/17 09:05 Clindamycin Phosphate 900 mg/ (Premix) 50 mls @ 100 mls/hr IV ONCALL [facility] Last Admin: 03/10/17 07:28 Dose: 100 mls/hr Ropivacaine 49.25 ml/Ketorolac Tromethamine 30 mg/Epinephrine HCl 0.5 mg/ Clonidine HCl 80 mcg/ Sodium Chloride 100 mls @ 50 mls/min INJECT ONETIME ONE Stop: 03/10/17 06:01 Last Admin: 03/10/17 10:21 Dose: Not Given Lactated Ringer's (Ringers, Lactated) 1,000 mls @ 100 mls/hr IV ASDIRECTED [facility] Last Admin: 03/11/17 07:33 Dose: 100 mls/hr Ropivacaine 49.25 ml/Ketorolac Tromethamine 30 mg/Epinephrine HCl 0.5 mg/ Clonidine HCl 80 mcg/ Sodium Chloride 100 mls @ 50 mls/min INJECT ONETIME ONE Stop: 03/10/17 07:16 Last Admin: 03/10/17 10:22 Dose: Not Given Clindamycin Phosphate 900 mg/ (Premix) 50 mls @ 100 mls/hr IV Q8H [facility] Stop: 03/11/17 01:29 Last Infusion: 03/11/17 05:59 Dose: Infused Ketorolac Tromethamine (Toradol) 30 mg IVPUSH ONARRIVE [facility] Last Admin: 03/10/17 07:10 Dose: 30 mg Ketorolac Tromethamine (Toradol) 30 mg IVPUSH Q6H [facility] Stop: 03/11/17 09:00 Last Admin: 03/10/17 12:20 Dose: 30 mg Lidocaine (Xylocaine-Mpf 2%) Confirm Administered Dose 10 ml .ROUTE .STK-MED ONE Stop: 03/10/17 09:38 Metoclopramide HCl (Reglan) 10 mg IVPUSH ONETIME ONE Stop: 03/10/17 09:05 Last Admin: 03/10/17 10:24 Dose: Not Given Midazolam HCl (Versed 1 Mg/Ml) Confirm Administered Dose 2 mg .ROUTE .STK-MED ONE Stop: 03/10/17 06:49 Morphine Sulfate (Morphine) 1 - 3 mg IVPUSH Q3H PRN PRN Reason: Pain Ondansetron HCl (Zofran) 4 mg IVPUSH ONETIME ONE Stop: 03/10/17 09:05 Last Admin: 03/10/17 10:24 Dose: Not Given Oxycodone HCl (Oxycontin) 10 mg PO ONARRIVE [facility] Propofol (Diprivan 20 Ml) Confirm Administered Dose 200 mg .ROUTE .STK-MED ONE Stop: 03/10/17 06:50 Propofol (Diprivan 20 Ml) Confirm Administered Dose 200 mg .ROUTE .STK-MED ONE Stop: 03/10/17 08:33 Tranexamic Acid (Cyklokapron) 4,000 mg IV SEECOMMENT [facility] Tranexamic Acid (Cyklokapron) Confirm Administered Dose 2,000 mg .ROUTE .STK- MED ONE Stop: 03/10/17 06:52 - Exam General: alert, oriented, cooperative, no acute distress Lungs: Clear to auscultation, Normal respiratory effort Cardiovascular: Regular Rate, Regular Rhythm Abdomen: bowel sounds present, soft, no tenderness, no distension Extremities: normal pulses Wound/Incisions: dressing dry and intact Neurological: no new focal deficit Psy/Mental Status: alert, normal affect, normal mood Consult PN Assessment/Plan Procedures: Procedures ASSAY THYROID STIM HORMONE (01/24/17) CHEST X-RAY 2VW FRONTAL&LATL (02/26/17) COMPLETE CBC AUTOMATED (02/26/17) COMPREHEN METABOLIC PANEL (12/11/16) CT ABD & PELV W/CONTRAST (12/26/16) DIAGNOSTIC COLONOSCOPY (01/02/17) GLYCOSYLATED HEMOGLOBIN TEST (02/26/17) LIPID PANEL (12/11/16) METABOLIC PANEL TOTAL CA (02/26/17) MICROALBUMIN SEMIQUANT (12/11/16) MRI JNT OF LWR EXTRE W/O DYE (02/14/17) PROTHROMBIN TIME (02/26/17) ROUTINE VENIPUNCTURE (02/26/17) X-RAY EXAM KNEE 4 OR MORE (12/24/16) (1) S/P total knee arthroplasty SNOMED Code(s): 4679481757127, 962774122, 7812645563160 Code(s): Z96.659 - PRESENCE OF UNSPECIFIED ARTIFICIAL KNEE JOINT Current Visit: Yes Qualifiers: Laterality: right Qualified Code(s): Z96.651 - Presence of right artificial knee joint (2) DM type 2 (diabetes mellitus, type 2) SNOMED Code(s): 40837000 Code(s): E11.9 - TYPE 2 DIABETES MELLITUS WITHOUT COMPLICATIONS Current Visit: Yes Qualifiers: Diabetes mellitus complication status: with neurologic complications Diabetes mellitus complication detail: with polyneuropathy Diabetes mellitus nursing home insulin use: with nursing home use Qualified Code(s): E11.42 - Type 2 diabetes mellitus with diabetic polyneuropathy; 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 of insulin (3) Anxiety and depression SNOMED Code(s): 367893886 Code(s): F41.9 - ANXIETY DISORDER, UNSPECIFIED; F32.9 - MAJOR DEPRESSIVE DISORDER, SINGLE EPISODE, UNSPECIFIED Current Visit: Yes (4) HTN (hypertension) SNOMED Code(s): 29370361 Code(s): I10 - ESSENTIAL (PRIMARY) HYPERTENSION Current Visit: Yes Qualifiers: Hypertension type: essential hypertension Qualified Code(s): I10 - Essential (primary) hypertension (5) Hypothyroidism SNOMED Code(s): 88475321 Code(s): E03.9 - HYPOTHYROIDISM, UNSPECIFIED Current Visit: Yes Qualifiers: Hypothyroidism type: unspecified Qualified Code(s): E03.9 - Hypothyroidism , unspecified Problem List Initiated/Reviewed/Updated: Yes My Orders last 24 hours: My Active Orders 03/11/17 07:30 Levothyroxine [Synthroid] 50 mcg PO DAILY@0730 03/11/17 09:00 Ascorbic Acid [Vitamin C] 1,000 mg PO DAILY Ferrous Sulfate 325 mg PO DAILY Hydrochlorothiazide 25 mg PO DAILY Lisinopril [Prinivil] 40 mg PO DAILY Multivitamins [Tab-A-Donis] 1 tab PO DAILY Patient's Own Medication [Ptom] 1 each PO DAILY Plan: This 56 year old female admitted for R TKA, Hospitalist service consulted for medical management 1. S/P R TKA: Stable. Encourage IS 2. DM type 2: On insulin pump, BS stable. 3. HTN: remains stable, continue medications. 4. Anemia: Hgb 11.7 today, continue Iron. VTE prophylaxis: When deemed appropriate by Ortho, ASA BID ordered.
[2017-03-12] MEDS: Gabapentin 300 MG Cap PO SCH (08:10)
[2017-03-12] MEDS: Lisinopril 10 MG Tab PO SCH (08:10)
[2017-03-12] MEDS: Cetirizine 10 MG Tab PO SCH (08:11)
[2017-03-12] MEDS: Ferrous Sulfate 325 MG Tab PO SCH (08:11)
[2017-03-12] MEDS: Aspirin 325 MG Tab PO SCH (08:11)
[2017-03-12] MEDS: Hydrochlorothiazide 25 MG Tab PO SCH (08:12)
[2017-03-12] MEDS: Ascorbic Acid 500 MG Tab PO SCH (08:12)
[2017-03-12] MEDS: Multivitamin Tab PO SCH (08:12)
[2017-03-12] MEDS: Docusate Sodium 100 MG Cap PO SCH (08:12)
[2017-03-12] MEDS: oxyCODONE ER 10 MG TAB.ER PO SCH (08:12)
--- NOTE | 2017-03-12 09:35 | PCM.SURGPN ---
- General Info Date of Service: 03/12/17 Date of Surgery/Procedure: 03/10/17 POD#: 2 Functional Status: Reports: pain controlled, tolerating diet, ambulating, urinating - Review of Systems General: Reports: No Symptoms HEENT: Reports: no symptoms Pulmonary: Reports: no symptoms Cardiovascular: Reports: No Symptoms Gastrointestinal: Reports: No symptoms Genitourinary: Reports: no symptoms Musculoskeletal: Reports: leg pain, joint pain, joint swelling Neurological: Reports: No Symptoms Psychiatric: Reports: no symptoms - Patient Data Vitals - most recent: Last Vital Signs Temp 36.4 C 03/12/17 07:32 Pulse 92 03/12/17 07:32 Resp 16 03/12/17 07:32 BP 142/63 H 03/12/17 08:10 Pulse Ox 95 03/12/17 07:32 Weight - most recent: 109.769 kg I&O - last 24 hours: Intake & Output 03/11/17 03/12/17 03/12/17 22:59 06:59 14:59 Intake Total 1750 850 Output Total 3050 3050 Balance -1300 -2200 Lab Results last 24 hrs: Laboratory Results - last 24 hr 03/12/17 03/12/17 Range/Units 04:26 04:26 Hgb 11.7 L (12.0-16.0) g/dL Hct 36.5 (36.0-46.0) % Sodium 141 (136-146) mmol/L Potassium 4.6 (3.5-5.1) mmol/L Chloride 107 (98-110) mmol/L Carbon Dioxide 28 (21-31) mmol/L BUN 22 (6.0-23.0) mg/dL Creatinine 1.0 (0.6-1.5) mg/dL Est Cr Clr Drug Dosing 66.43 mL/min Estimated GFR (MDRD) 57.6 ml/min Glucose 145 H (60-110) mg/dL Calcium 9.1 (8.8-10.8) mg/dL Med Orders - Current: Current Medications Acetaminophen (Tylenol Extra Strength) 1,000 mg PO Q6H [facility] Last Admin: 03/12/17 06:34 Dose: 1,000 mg Al Hydroxide/Mg Hydroxide (Mag-Al Plus) 30 ml PO Q4H PRN PRN Reason: indigestion Ascorbic Acid (Vitamin C) 1,000 mg PO DAILY [facility] Last Admin: 03/12/17 08:12 Dose: 1,000 mg Aspirin (Aspirin) 325 mg PO BID [facility] Last Admin: 03/12/17 08:11 Dose: 325 mg Bisacodyl (Dulcolax) 10 mg RECTAL DAILY PRN PRN Reason: Constipation Cetirizine HCl (Zyrtec) 10 mg PO BID [facility] Last Admin: 03/12/17 08:11 Dose: 10 mg Diphenhydramine HCl (Benadryl) 25 - 50 mg PO Q6H PRN PRN Reason: Itching Last Admin: 03/10/17 23:38 Dose: 25 mg Docusate Sodium (Colace) 100 mg PO BID [facility] Last Admin: 03/12/17 08:12 Dose: 100 mg Ferrous Sulfate (Ferrous Sulfate) 325 mg PO DAILY [facility] Last Admin: 03/12/17 08:11 Dose: 325 mg Fluticasone Propionate (Flonase) 0 gm NASBOTH ASDIRECTED PRN PRN Reason: Allergies Gabapentin (Neurontin) 600 mg PO BID [facility] Last Admin: 03/12/17 08:10 Dose: 600 mg Hydrochlorothiazide (Hydrochlorothiazide) 25 mg PO DAILY [facility] Last Admin: 03/12/17 08:12 Dose: 25 mg Insulin Aspart (Novolog) 0 unit SUBCUT QIDACANDBED [facility] Last Admin: 03/12/17 06:38 Dose: Not Given Levothyroxine Sodium (Synthroid) 50 mcg PO DAILY@0730 [facility] Last Admin: 03/12/17 06:35 Dose: 50 mcg Lisinopril (Prinivil) 40 mg PO DAILY [facility] Last Admin: 03/12/17 08:10 Dose: 40 mg Morphine Sulfate (Morphine) 1 - 3 mg IVPUSH Q3H PRN PRN Reason: Pain Last Admin: 03/12/17 03:28 Dose: 3 mg Multivitamins/Minerals/Vitamin C (Tab-A-Donis) 1 tab PO DAILY [facility] Last Admin: 03/12/17 08:12 Dose: 1 tab Ondansetron HCl (Zofran) 4 mg IV Q6HR PRN PRN Reason: NAUSEA/VOMITING Last Admin: 03/10/17 14:08 Dose: 4 mg Oxycodone HCl (Oxycodone) 5 - 10 mg PO Q4H PRN PRN Reason: Pain Last Admin: 03/12/17 06:35 Dose: 10 mg Oxycodone HCl (Oxycontin) 10 mg PO Q12HR [facility] Last Admin: 03/12/17 08:12 Dose: 10 mg Fenofibrate 160 Mg 1 each PO DAILY [facility] Last Admin: 03/12/17 08:16 Dose: 1 each Scopolamine (Transderm-Scop) 1.5 mg TRDERM ONARRIVE [facility] Last Admin: 03/10/17 07:15 Dose: 1.5 mg Sodium Chloride (Saline Flush) 10 ml FLUSH ASDIRECTED PRN PRN Reason: Keep Vein Open Sodium Chloride (Saline Flush) 2.5 ml FLUSH ASDIRECTED PRN PRN Reason: Keep Vein Open Trazodone HCl (Trazodone) 150 mg PO BEDTIME PRN PRN Reason: Insomnia Discontinued Medications Acetaminophen (Tylenol Extra Strength) 1,000 mg PO ONARRIVE [facility] Celecoxib (Celebrex) 200 mg PO DAILY [facility] Famotidine (Pepcid) 40 mg IVPUSH ONARRIVE [facility] Last Admin: 03/10/17 07:15 Dose: 40 mg Fentanyl (Sublimaze) Confirm Administered Dose 100 mcg .ROUTE .STK-MED ONE Stop: 03/10/17 06:49 Fentanyl (Sublimaze) 50 mcg IVPUSH Q5M PRN PRN Reason: Pain (severe 7-10) Stop: 03/11/17 09:05 Hydromorphone HCl (Dilaudid) 0.25 mg IVPUSH Q10M PRN PRN Reason: Pain (severe 7-10) Stop: 03/11/17 09:05 Clindamycin Phosphate 900 mg/ (Premix) 50 mls @ 100 mls/hr IV ONCALL [facility] Last Admin: 03/10/17 07:28 Dose: 100 mls/hr Ropivacaine 49.25 ml/Ketorolac Tromethamine 30 mg/Epinephrine HCl 0.5 mg/ Clonidine HCl 80 mcg/ Sodium Chloride 100 mls @ 50 mls/min INJECT ONETIME ONE Stop: 03/10/17 06:01 Last Admin: 03/10/17 10:21 Dose: Not Given Lactated Ringer's (Ringers, Lactated) 1,000 mls @ 100 mls/hr IV ASDIRECTED [facility] Last Admin: 03/11/17 07:33 Dose: 100 mls/hr Ropivacaine 49.25 ml/Ketorolac Tromethamine 30 mg/Epinephrine HCl 0.5 mg/ Clonidine HCl 80 mcg/ Sodium Chloride 100 mls @ 50 mls/min INJECT ONETIME ONE Stop: 03/10/17 07:16 Last Admin: 03/10/17 10:22 Dose: Not Given Clindamycin Phosphate 900 mg/ (Premix) 50 mls @ 100 mls/hr IV Q8H [facility] Stop: 03/11/17 01:29 Last Infusion: 03/11/17 05:59 Dose: Infused Ketorolac Tromethamine (Toradol) 30 mg IVPUSH ONARRIVE [facility] Last Admin: 03/10/17 07:10 Dose: 30 mg Ketorolac Tromethamine (Toradol) 30 mg IVPUSH Q6H [facility] Stop: 03/11/17 09:00 Last Admin: 03/10/17 12:20 Dose: 30 mg Lidocaine (Xylocaine-Mpf 2%) Confirm Administered Dose 10 ml .ROUTE .STK-MED ONE Stop: 03/10/17 09:38 Metoclopramide HCl (Reglan) 10 mg IVPUSH ONETIME ONE Stop: 03/10/17 09:05 Last Admin: 03/10/17 10:24 Dose: Not Given Midazolam HCl (Versed 1 Mg/Ml) Confirm Administered Dose 2 mg .ROUTE .STK-MED ONE Stop: 03/10/17 06:49 Morphine Sulfate (Morphine) 1 - 3 mg IVPUSH Q3H PRN PRN Reason: Pain Ondansetron HCl (Zofran) 4 mg IVPUSH ONETIME ONE Stop: 03/10/17 09:05 Last Admin: 03/10/17 10:24 Dose: Not Given Oxycodone HCl (Oxycontin) 10 mg PO ONARRIVE [facility] Propofol (Diprivan 20 Ml) Confirm Administered Dose 200 mg .ROUTE .STK-MED ONE Stop: 03/10/17 06:50 Propofol (Diprivan 20 Ml) Confirm Administered Dose 200 mg .ROUTE .STK-MED ONE Stop: 03/10/17 08:33 Tranexamic Acid (Cyklokapron) 4,000 mg IV SEECOMMENT [facility] Tranexamic Acid (Cyklokapron) Confirm Administered Dose 2,000 mg .ROUTE .STK- MED ONE Stop: 03/10/17 06:52 - Exam Wound/Incisions: dressing dry and intact (Dressing changed today.), no drainage General: alert, oriented HEENT: Pupils equal, Pupils reactive Neck: trachea midline Lungs: Clear to auscultation, Normal respiratory effort Cardiovascular: Regular Rate Extremities: other (Right anterior tibialis, extensor hallucis longus and gastrocnemius strength +5/5 bilaterally. Sensation intact. Dorsalis pedis and posterior tibial pulses +2 bilaterally. ) Neurological: no new focal deficit Psy/Mental Status: alert, normal affect, normal mood - Problem List Review Problem List Initiated/Reviewed/Updated: Yes - My Orders Last 24 Hours: Active Orders 24 hr Category Date Time Status HEMOGLOBIN/HEMATOCRIT,HH [HEME] DAILY Lab 03/13/17 07:00 Ordered Ascorbic Acid [Vitamin C] Med 03/11/17 09:00 Active 1,000 mg PO DAILY Aspirin Med 03/11/17 09:00 Active 325 mg PO BID Ferrous Sulfate Med 03/11/17 09:00 Active 325 mg PO DAILY Hydrochlorothiazide Med 03/11/17 09:00 Active 25 mg PO DAILY Lisinopril [Prinivil] Med 03/11/17 09:00 Active 40 mg PO DAILY Multivitamins [Tab-A-Donis] Med 03/11/17 09:00 Active 1 tab PO DAILY Patient's Own Medication [Ptom] Med 03/11/17 09:00 Active 1 each PO DAILY Medication Orders Acetaminophen (Tylenol Extra Strength) 1,000 mg PO Q6H [facility] Last Admin: 03/12/17 06:34 Dose: 1,000 mg Admin: 03/11/17 23:03 Dose: 1,000 mg Admin: 03/11/17 17:36 Dose: 1,000 mg Admin: 03/11/17 12:28 Dose: 1,000 mg Admin: 03/11/17 06:35 Dose: 1,000 mg Admin: 03/10/17 23:38 Dose: 1,000 mg Admin: 03/10/17 17:03 Dose: 1,000 mg Admin: 03/10/17 12:19 Dose: 1,000 mg Al Hydroxide/Mg Hydroxide (Mag-Al Plus) 30 ml PO Q4H PRN PRN Reason: indigestion Ascorbic Acid (Vitamin C) 1,000 mg PO DAILY [facility] Last Admin: 03/12/17 08:12 Dose: 1,000 mg Admin: 03/11/17 08:30 Dose: 1,000 mg Aspirin (Aspirin) 325 mg PO BID [facility] Last Admin: 03/12/17 08:11 Dose: 325 mg Admin: 03/11/17 20:55 Dose: 325 mg Admin: 03/11/17 08:25 Dose: 325 mg Bisacodyl (Dulcolax) 10 mg RECTAL DAILY PRN PRN Reason: Constipation Cetirizine HCl (Zyrtec) 10 mg PO BID [facility] Last Admin: 03/12/17 08:11 Dose: 10 mg Admin: 03/11/17 20:56 Dose: 10 mg Admin: 03/11/17 08:30 Dose: 10 mg Admin: 03/10/17 20:14 Dose: 10 mg Diphenhydramine HCl (Benadryl) 25 - 50 mg PO Q6H PRN PRN Reason: Itching Last Admin: 03/10/17 23:38 Dose: 25 mg Docusate Sodium (Colace) 100 mg PO BID [facility] Last Admin: 03/12/17 08:12 Dose: 100 mg Admin: 03/11/17 20:55 Dose: 100 mg Admin: 03/11/17 08:28 Dose: 100 mg Admin: 03/10/17 20:14 Dose: 100 mg Ferrous Sulfate (Ferrous Sulfate) 325 mg PO DAILY [facility] Last Admin: 03/12/17 08:11 Dose: 325 mg Admin: 03/11/17 08:30 Dose: 325 mg Fluticasone Propionate (Flonase) 0 gm NASBOTH ASDIRECTED PRN PRN Reason: Allergies Gabapentin (Neurontin) 600 mg PO BID [facility] Last Admin: 03/12/17 08:10 Dose: 600 mg Admin: 03/11/17 20:57 Dose: 600 mg Admin: 03/11/17 08:29 Dose: 600 mg Admin: 03/10/17 20:16 Dose: 600 mg Hydrochlorothiazide (Hydrochlorothiazide) 25 mg PO DAILY [facility] Last Admin: 03/12/17 08:12 Dose: 25 mg Admin: 03/11/17 08:28 Dose: 25 mg Insulin Aspart (Novolog) 0 unit SUBCUT QIDACANDBED [facility] Last Admin: 03/12/17 06:38 Dose: Not Given Admin: 03/11/17 21:00 Dose: Not Given Admin: 03/11/17 16:47 Dose: Admin: 03/11/17 12:30 Dose: Admin: 03/11/17 08:33 Dose: Admin: 03/10/17 20:24 Dose: Admin: 03/10/17 17:55 Dose: Not Given Levothyroxine Sodium (Synthroid) 50 mcg PO DAILY@0730 [facility] Last Admin: 03/12/17 06:35 Dose: 50 mcg Admin: 03/11/17 06:35 Dose: 50 mcg Lisinopril (Prinivil) 40 mg PO DAILY [facility] Last Admin: 03/12/17 08:10 Dose: 40 mg Admin: 03/11/17 08:27 Dose: 40 mg Morphine Sulfate (Morphine) 1 - 3 mg IVPUSH Q3H PRN PRN Reason: Pain Last Admin: 03/12/17 03:28 Dose: 3 mg Admin: 03/11/17 23:02 Dose: 3 mg Admin: 03/11/17 19:30 Dose: 3 mg Admin: 03/11/17 16:29 Dose: 3 mg Admin: 03/10/17 23:34 Dose: 3 mg Admin: 03/10/17 15:19 Dose: 3 mg Multivitamins/Minerals/Vitamin C (Tab-A-Donis) 1 tab PO DAILY [facility] Last Admin: 03/12/17 08:12 Dose: 1 tab Admin: 03/11/17 08:25 Dose: 1 tab Ondansetron HCl (Zofran) 4 mg IV Q6HR PRN PRN Reason: NAUSEA/VOMITING Last Admin: 03/10/17 14:08 Dose: 4 mg Oxycodone HCl (Oxycodone) 5 - 10 mg PO Q4H PRN PRN Reason: Pain Last Admin: 03/12/17 06:35 Dose: 10 mg Admin: 03/12/17 01:14 Dose: 10 mg Admin: 03/11/17 21:30 Dose: 10 mg Admin: 03/11/17 17:37 Dose: 10 mg Admin: 03/11/17 13:21 Dose: 10 mg Admin: 03/10/17 17:53 Dose: 10 mg Admin: 03/10/17 13:00 Dose: 10 mg Oxycodone HCl (Oxycontin) 10 mg PO Q12HR [facility] Last Admin: 03/12/17 08:12 Dose: 10 mg Admin: 03/11/17 20:56 Dose: 10 mg Admin: 03/11/17 08:29 Dose: 10 mg Admin: 03/10/17 20:13 Dose: 10 mg Fenofibrate 160 Mg 1 each PO DAILY [facility] Last Admin: 03/12/17 08:16 Dose: 1 each Admin: 03/11/17 08:34 Dose: Scopolamine (Transderm-Scop) 1.5 mg TRDERM ONARRIVE [facility] Last Admin: 03/10/17 07:15 Dose: 1.5 mg Sodium Chloride (Saline Flush) 10 ml FLUSH ASDIRECTED PRN PRN Reason: Keep Vein Open Sodium Chloride (Saline Flush) 2.5 ml FLUSH ASDIRECTED PRN PRN Reason: Keep Vein Open Trazodone HCl (Trazodone) 150 mg PO BEDTIME PRN PRN Reason: Insomnia - Assessment Assessment (Free Text/Narrative):: Patient in bed this AM Pain not well controlled Tolerating diet VSS Hgb 11.7 UO 6100 mL - Plan Plan (Free Text/Narrative):: Continue pain management Continue PT Encourage ambulation D/C home this afternoon if pain is adequately controlled
[2017-03-12] MEDS: diphenhydrAMINE 25 MG Cap PO PRN (09:44)
[2017-03-12 11:27] VITALS: BP 130/62
--- NOTE | 2017-03-12 13:01 | PCM.SN ---
- Free Text/Narrative Note: Patient seen and examined. Agree with Jose Miguel PAC note. Patient currently sitting up in chair. She has been doing well with physical therapy. Her pain has been well-controlled. Dressing dry and intact. NVI. Hgb stable. Will plan to discharge later today. She should continue with outpatient physical therapy and her home exercise program. Continue current pain management. She is advised to contact us if she has questions or concerns prior to her follow-up appointment. Patient agrees with the plan.
--- NOTE | 2017-03-13 11:02 | PCM.SN ---
- Free Text/Narrative Note: Discharge summary Dressing was changed prior to discharge. See discharge plan for complete list of discharge medications and instructions. Dictation #: [id number]
--- NOTE | 2017-03-14 04:45 | DISCH ---
DATE OF DISCHARGE: 03/12/2017 PRIMARY CARE PHYSICIAN: LEANNA Campos ADMITTING DIAGNOSIS: Degenerative joint disease, right knee, with varus deformity. OTHER MEDICAL DIAGNOSES: 1. Hypertension. 2. Hypercholesterolemia. 3. Type 2 diabetes mellitus. 4. Hypothyroidism. DISCHARGE DIAGNOSES: 1. Status post right total knee arthroplasty. 2. Hypertension. 3. Hypercholesterolemia. 4. Type 2 diabetes mellitus. 5. Hypothyroidism. BRIEF HISTORY: The patient is a 56-year-old female, who has had complaints of progressive right knee pain. She was found to have tricompartmental degenerative changes on her x - rays. She has failed conservative treatment. Due to her lack of response to conservative treatment, surgical intervention was considered at that time. OPERATION: Right total knee arthroplasty. HOSPITAL COURSE: Pain was controlled with a combination of p.o. and IV pain medications. The patient was given 2 doses of clindamycin postoperatively for 24 hours of antibiotic coverage. She was followed by hospitalist and physical therapy during her hospital stay. Upon discharge, the patient's vital signs were stable and she was afebrile. Hemoglobin on day of discharge is 11.7. Aspirin 325 mg was started on postop day 1 for DVT prophylaxis. Pain is currently controlled with oral pain medications only. She is tolerating oral intake and ambulating with wheeled walker. She feels comfortable with discharge home today. DISCHARGE MEDICATIONS: 1. OxyContin 10 mg. 2. Tylenol 500 mg. 3. Aspirin 325 mg. 4. Colace 100 mg. 5. Oxycodone 10 mg. DISCHARGE INSTRUCTIONS: 1. The patient will follow up in the clinic on March 20, 2017. This appointment was made for the patient. 2. Outpatient physical therapy 2 to 3 times per week for 4 to 6 weeks. 3. [facility] to the right knee. 4. [place] hose to the right lower extremity, on in the morning off in the evening. For complete medication reconciliation and discharge instructions please refer her to the patient's EHR. If she has questions prior to followup, she may call the clinic. JONNY MARTE /[id number] ANDREW
== END 2017-03-12 15:00 | disposition home or self-care (01) | DRG 302 ==
LOC: MW.MS 06:16
PROVIDERS: ADMIT Orthopaedic Surgery; ATTEND Orthopaedic Surgery
PROC: 0SRC0J9 Replacement of Right Knee Joint with Synthetic Substitute, Cemented, Open Approach (ICD-10-PCS; principal; 2017-03-10)
DX: M17.11 Unilateral primary osteoarthritis, right knee (principal); M21.161 Varus deformity, not elsewhere classified, right knee; I10 Essential (primary) hypertension; E03.9 Hypothyroidism, unspecified; E11.40 Type 2 diabetes mellitus with diabetic neuropathy, unspecified; F41.8 Other specified anxiety disorders; K21.9 Gastro-esophageal reflux disease without esophagitis; E78.5 Hyperlipidemia, unspecified; D64.9 Anemia, unspecified; Z88.8 Allergy status to other drugs, medicaments and biological substances; Z79.899 Other long term (current) drug therapy; Z79.82 Long term (current) use of aspirin
CPT/HCPCS: 01402; 36415; 73560-26-RT; 73560-RT; 80048; 80053; 82962; 83550; 85014; 85018; 85025; 86850; 86900; 86901; 88304; 88311; 97110-GP; 97162-GP; 97530-GP; A9270-GY; C1713; C1776; J0171; J0735; J1815-GY; J1885; J2250; J2270; J2405; J2704; J2795; J3010; J7050; J7120